=== PATIENT | male | born 1990 | race Caucasian/White ===

== ENCOUNTER 2023-04-11 15:04 | Emergency (ER) | payer BC, SELFPAY ==
[2023-04-11 15:06] VITALS: BP 169/111; PULSE 89; RESP 16; TEMP 36.7; O2SAT 99; BMI 24.1
--- NOTE | 2023-04-11 15:16 | US_ITS ---
The [address] [address] Patient Name: SHAHLA DOBBS MRN: [id number] date: 1990 Sex: M Assigned Patient Location: ER Current Patient Location: ER Accession/Order Number: [id number] Exam Date: 04/11/2023 15:27 Report Date: 04/11/2023 16:41 At the request of: KEENAN NGUYEN Procedure: US right upper quadrant EXAM: US right upper quadrant HISTORY: . right upper quad pain, vomiting . COMPARISON: None. TECHNIQUE: Grayscale and color imaging was performed FINDINGS: The pancreas appears normal. The liver is normal in size. No masses are noted. Color-flow is noted in the portal and hepatic veins. Right kidney measures 11.3 x 5.5 x 5.4 cm. No solid renal cortical masses or hydronephrosis is noted. Common bile duct measures 3 mm. Echogenic foci noted within the gallbladder with shadowing consistent with gallstones. The largest stone measured approximately 1.1 cm. No gallbladder wall thickening is noted. Patient did have some tenderness upon scanning over the gallbladder. No fluid is noted in the right upper quadrant. US/US right upper quadrant IMPRESSION: 1. Cholelithiasis. No gallbladder wall thickening. Patient did have some tenderness upon scanning over the gallbladder. 2. The remainder the right upper quadrant was unremarkable. Electronically authenticated by: FLY POWELL Date: 04/11/2023 16:41
--- NOTE | 2023-04-11 15:19 | ED_ITS ---
HPI - General Adult General Chief complaint: Abdominal Pain Stated complaint: abdominal pain Time Seen by Provider: 04/11/23 15:04 Source: patient Mode of arrival: walk-in Limitations: no limitations History of Present Illness HPI narrative: Patient is a 32-year-old male who presents to the emergency department for pain for the last 3 to 4 days. He reports associated nausea and vomiting, he has not had anything to eat or drink today. He states he has chronic diarrhea which is thought to be a side effect of one of his medications. He has had no previous abdominal surgeries, no fevers. He denies urinary symptoms. He reports pain in the right upper quadrant, radiating to the right lateral abdomen. No significant back pain. No medications taken prior to arrival. Related Data Home Medications Medication Instructions Recorded Confirmed baclofen 10 mg tablet 10 mg PO Q12H PRN muscle spasm 04/11/23 04/11/23 bictegravir 50 mg-emtricitabine 1 tab PO DAILY 04/11/23 04/11/23 200 mg-tenofovir alafenam 25 mg tablet (Biktarvy) pantoprazole 40 mg tablet,delayed 40 mg PO DAILY 04/11/23 04/11/23 release Previous Rx's Medication Instructions Recorded dicyclomine 20 mg tablet 20 mg PO QID PRN abdominal pain 04/11/23 #12 tabs ketorolac 10 mg tablet 10 mg PO TID PRN pain #10 tabs 04/11/23 ondansetron 4 mg disintegrating 4 mg PO Q6H PRN nausea and 04/11/23 tablet vomiting #12 tabs tramadol 50 mg tablet 50 mg PO Q4H PRN pain 3 days #15 04/11/23 tabs Allergies Allergy/AdvReac Type Severity Reaction Status Date / Time No Known Drug Allergies Allergy Verified 04/11/23 15:06 Review of Systems ROS Constitutional Denies: fever or chills Ears, nose, mouth, and throat Denies: throat pain or nasal congestion Cardiovascular Denies: chest pain Respiratory Denies: shortness of breath or cough Gastrointestinal Reports: abdominal pain, nausea, vomiting and diarrhea Genitourinary Denies: painful urination or urinary frequency Musculoskeletal Denies: back pain or neck pain Integumentary/Breast Denies: rash Neurological Denies: headache PFSH PFSH Social History Smoking status: Current some day smoker Exam Narrative Exam Narrative: Gen.: Awake, alert, in no distress Head: Normocephalic, atraumatic ENT: Moist mucous membranes Respiratory: No respiratory distress Gastrointestinal: Abdomen is soft, nondistended and tender to palpation in the right upper quadrant, no guarding or rebound Extremities: Moves extremities equally Psych: Normal mood and affect Neuro: No focal neuro deficit Skin: Warm, dry, intact Constitutional Vital Signs, click to edit/add: Last Vital Signs Temp 98.1 F 04/11/23 15:06 Pulse 80 04/11/23 17:30 Resp 16 04/11/23 17:30 BP 133/88 04/11/23 17:30 Pulse Ox 98 04/11/23 17:30 O2 Del Method Room Air 04/11/23 15:06 Course Vital Signs Vital signs: Vital Signs Temperature 98.1 F 04/11/23 15:06 Pulse Rate 89 04/11/23 15:06 Respiratory Rate 16 04/11/23 15:06 Blood Pressure 169/111 H 04/11/23 15:06 Pulse Oximetry 99 04/11/23 15:06 Oxygen Delivery Method Room Air 04/11/23 15:06 Temperature 98.1 F 04/11/23 15:06 Pulse Rate 80 04/11/23 17:30 Respiratory Rate 16 04/11/23 17:30 Blood Pressure 133/88 04/11/23 17:30 Pulse Oximetry 98 04/11/23 17:30 Oxygen Delivery Method Room Air 04/11/23 15:06 Medical Decision Making MDM Narrative Medical decision making narrative: Lab studies within normal limits, normal LFTs and lipase. Ultrasound of the right upper quadrant shows gallstones with no evidence of acute cholecystitis or thickened gallbladder. Patient will be referred to general surgery. He is encouraged to follow a low fat/biliary diet. Levsin, Zofran, Toradol given for home. General surgery referral given for follow-up. Return to the emergency department if symptoms change or worsen. Medical Records Medical records reviewed: Yes I reviewed the patient's medical records Lab Data Lab results reviewed: Yes I reviewed the patient's lab results Labs: Lab Results 04/11/23 04/11/23 Range/Units 15:15 16:13 WBC 7.3 (4.0-11.0) 10^3/uL RBC 4.73 (4.70-6.10) 10^6/uL Hgb 14.4 (14.0-18.0) g/dL Hct 42.7 (42.0-54.0) % MCV 90.3 (80.0-94.0) fL MCH 30.4 (25.9-34.0) pg MCHC 33.7 (29.9-35.2) g/dL RDW 12.2 (11.0-15.0) % Plt Count 270 (150-450) 10^3/uL MPV 8.7 L (9.5-13.5) fL Neut % (Auto) 69.7 (43.0-75.0) % Lymph % (Auto) 21.4 (20.5-60.0) % [place] % (Auto) 6.4 (1.7-12.0) % Eos % (Auto) 1.8 (0.9-7.0) % Baso % (Auto) 0.4 (0.2-2.0) % Neut # (Auto) 5.1 (1.4-6.5) 10^3/uL Lymph # (Auto) 1.6 (1.2-3.8) 10^3/uL [place] # (Auto) 0.5 (0.3-0.8) 10^3/uL Eos # (Auto) 0.1 (0.0-0.7) 10^3/uL Baso # (Auto) 0.0 (0.0-0.1) 10^3/uL Abs Immat Gran (auto) 0.02 (0.00-0.03) 10^3/uL Imm/Tot Granulo (auto) 0.3 (0.0-0.5) % Sodium 137 (136-145) mmol/L Potassium 3.4 L (3.5-5.1) mmol/L Chloride 99 (98-107) mmol/L Carbon Dioxide 26.0 (21.0-32.0) mmol/L Anion Gap 15.4 BUN 6.0 L (7.0-18.0) mg/dL Creatinine 0.93 (0.70-1.30) mg/dL Est GFR ( Amer) >60 (>=60) Est GFR (Non-Af Amer) >60 (>=60) BUN/Creatinine Ratio 6.5 Glucose 110 H (74-106) mg/dL Lactate 2.2 H* (0.4-2.0) mmol/L Calcium 9.1 (8.5-10.1) mg/dL Total Bilirubin 0.6 (0.2-1.0) mg/dL AST 17 (15-37) U/L ALT 35 (16-63) U/L Alkaline Phosphatase 76 (46-116) U/L Total Protein 8.0 (6.4-8.2) g/dL Albumin 4.4 (3.4-5.0) g/dL Globulin 3.6 g/dL Albumin/Globulin Ratio 1.2 Lipase 24.0 (16.0-77.0) U/L Urine Color Lt. yellow (YELLOW) Urine Clarity Clear (CLEAR) Urine pH 7.0 (5.0-9.0) Ur Specific [place] 1.015 (1.005-1.025) Urine Protein Negative (NEG/TRACE) mg/dL Urine Glucose (UA) Negative (NEGATIVE) mg/dL Urine Ketones Trace A (NEGATIVE) mg/dL Urine Occult Blood Negative (NEGATIVE) Urine Nitrite Negative (NEGATIVE) Urine Bilirubin Negative (NEGATIVE) Urine Urobilinogen 0.2 (0.2-1.0) EU/dL Ur Leukocyte Esterase Negative (NEGATIVE) Imaging Data US - abdomen: Attestation: I have reviewed the pertinent imaging results. Radiologist's impression: Procedure: US right upper quadrant EXAM: US right upper quadrant HISTORY: . right upper quad pain, vomiting . COMPARISON: None. TECHNIQUE: Grayscale and color imaging was performed FINDINGS: The pancreas appears normal. The liver is normal in size. No masses are noted. Color-flow is noted in the portal and hepatic veins. Right kidney measures 11.3 x 5.5 x 5.4 cm. No solid renal cortical masses or hydronephrosis is noted. Common bile duct measures 3 mm. Echogenic foci noted within the gallbladder with shadowing consistent with gallstones. The largest stone measured approximately 1.1 cm. No gallbladder wall thickening is noted. Patient did have some tenderness upon scanning over the gallbladder. No fluid is noted in the right upper quadrant. IMPRESSION: 1. Cholelithiasis. No gallbladder wall thickening. Patient did have some tenderness upon scanning over the gallbladder. 2. The remainder the right upper quadrant was unremarkable. Electronically authenticated by: FLY SHERRY Date: 04/11/2023 16:41 Discharge Plan Discharge Chief Complaint: Abdominal Pain Clinical Impression: Abdominal pain, Cholelithiasis Patient Disposition: Home, Self-Care Time of Disposition Decision: 17:12 Condition: Good Prescriptions / Home Meds: New tramadol 50 mg tablet 50 mg PO Q4H PRN (Reason: pain) 3 Days Qty: 15 0RF Rx Instructions: Dx: R10.9 ketorolac 10 mg tablet 10 mg PO TID PRN (Reason: pain) Qty: 10 0RF dicyclomine 20 mg tablet 20 mg PO QID PRN (Reason: abdominal pain) Qty: 12 0RF ondansetron 4 mg tablet,disintegrating 4 mg PO Q6H PRN (Reason: nausea and vomiting) Qty: 12 0RF No Action pantoprazole 40 mg tablet,delayed release (DR/EC) 40 mg PO DAILY Biktarvy 50-200-25 mg tablet 1 tab PO DAILY baclofen 10 mg tablet 10 mg PO Q12H PRN (Reason: muscle spasm) Instructions: Gallstones (ED), Acute Abdominal Pain (ED) Stand Alone Forms: Portal Instructions Referrals: Payam Salguero MD [Physician] - 1 week Payam Arzola MD [Physician] - 1 week Physician,Non-Staff, MD [Primary Care Provider] - 1 week Discharge Date/Time: 04/11/23 17:32
[2023-04-11 15:33] LABS: Basophils Percent Auto 0.4 % (0.2-2.0); Eosinophils Absolute Auto 0.1 10^3/uL (0.0-0.7); Eosinophils Percent Auto 1.8 % (0.9-7.0); Hematocrit 42.7 % (42.0-54.0); Hemoglobin 14.4 g/dL (14.0-18.0); Immature Granulocytes Abs Auto 0.02 10^3/uL (0.00-0.03); Immature Granulocytes Pct Auto 0.3 % (0.0-0.5); Lymphocytes Absolute Auto 1.6 10^3/uL (1.2-3.8); Lymphocytes Percent Auto 21.4 % (20.5-60.0); Mean Corpuscular HGB Conc 33.7 g/dL (29.9-35.2); Mean Corpuscular Hemoglobin 30.4 pg (25.9-34.0); Mean Corpuscular Volume 90.3 fL (80.0-94.0); Mean Platelet Volume 8.7 fL (9.5-13.5); Monocytes Absolute Auto 0.5 10^3/uL (0.3-0.8); Monocytes Percent Auto 6.4 % (1.7-12.0); Neutrophils Absolute Auto 5.1 10^3/uL (1.4-6.5); Neutrophils Percent Auto 69.7 % (43.0-75.0); Platelet Count 270 10^3/uL (150-450); Red Blood Count 4.73 10^6/uL (4.70-6.10); Red Cell Distribution Width 12.2 % (11.0-15.0); White Blood Count 7.3 10^3/uL (4.0-11.0)
[2023-04-11 16:00] LABS: Alanine Aminotransferase 35 U/L (16-63); Albumin Globulin Ratio 1.2; Albumin Level 4.4 g/dL (3.4-5.0); Alkaline Phosphatase 76 U/L (46-116); Anion Gap 15.4; Aspartate Amino Transferase 17 U/L (15-37); BUN Creatinine Ratio 6.5; Bilirubin Total 0.6 mg/dL (0.2-1.0); Calcium 9.1 mg/dL (8.5-10.1); Chloride 99 mmol/L (98-107); Estimated GFR (African America >60 (>=60); Estimated GFR (Non-African Ame >60 (>=60); Globulin 3.6 g/dL; Glucose 110 mg/dL (74-106); Potassium 3.4 mmol/L (3.5-5.1); Sodium 137 mmol/L (136-145)
[2023-04-11 16:01] LABS: Lactate/Lactic Acid 2.2 mmol/L (0.4-2.0)
[2023-04-11] MEDS: 0.9 % SODIUM CHLORIDE 1,000 ML 999 ML IV (16:07)
[2023-04-11] MEDS: ONDANSETRON PF 4 MG/2 ML VIAL IV (16:09)
[2023-04-11] MEDS: KETOROLAC TROMETHAMINE 30 MG/ML VIAL IVP (16:09)
[2023-04-11] MEDS: HYOSCYAMINE SULFATE 0.125 MG TAB.SUBL SL (16:09)
[2023-04-11 16:22] LABS: Bilirubin Urine NEGATIVE (NEGATIVE); Blood Urine NEGATIVE (NEGATIVE); Clarity Urine CLEAR (CLEAR); Color Urine LT. YELLOW (YELLOW); Glucose Urine UA NEGATIVE (NEGATIVE); Ketones Urine TRACE mg/dL (NEGATIVE); Leukocyte Esterase Urine NEGATIVE (NEGATIVE); Nitrite Urine NEGATIVE (NEGATIVE); Protein Urine NEGATIVE (NEG/TRACE); Specific Gravity Urine 1.015 (1.005-1.025); Urobilinogen Urine 0.2 EU/dL (0.2-1.0)
[2023-04-11 16:23] LABS: Urine Microscopic Indicated NO
[2023-04-11 17:30] VITALS: BP 133/88; PULSE 80; RESP 16; O2SAT 98
== END 2023-04-11 17:32 | disposition home or self-care (01) ==
PROVIDERS: Physician Assistant; Emergency Provider Emergency Medicine
DX: K80.20 Calculus of gallbladder without cholecystitis without obstruction (principal); R10.11 Right upper quadrant pain; K52.9 Noninfective gastroenteritis and colitis, unspecified; F17.200 Nicotine dependence, unspecified, uncomplicated
CPT/HCPCS: 36415; 76705; 80053; 81003; 83605; 83690; 85025; 96361; 96374; 96375; 99285

== ENCOUNTER 2023-04-26 14:17 | Emergency (ER) | payer BC, SELFPAY ==
[2023-04-26 14:31] VITALS: BP 154/93; PULSE 80; RESP 20; TEMP 36.7; O2SAT 100; BMI 24.4
[2023-04-26 15:14] LABS: Basophils Percent Auto 0.5 % (0.2-2.0); Eosinophils Absolute Auto 0.2 10^3/uL (0.0-0.7); Eosinophils Percent Auto 2.6 % (0.9-7.0); Hematocrit 38.4 % (42.0-54.0); Hemoglobin 12.9 g/dL (14.0-18.0); Lymphocytes Absolute Auto 1.4 10^3/uL (1.2-3.8); Mean Corpuscular HGB Conc 33.6 g/dL (29.9-35.2); Mean Corpuscular Hemoglobin 30.4 pg (25.9-34.0); Mean Corpuscular Volume 90.4 fL (80.0-94.0); Mean Platelet Volume 8.9 fL (9.5-13.5); Monocytes Absolute Auto 0.4 10^3/uL (0.3-0.8); Monocytes Percent Auto 5.3 % (1.7-12.0); Neutrophils Absolute Auto 5.5 10^3/uL (1.4-6.5); Neutrophils Percent Auto 72.6 % (43.0-75.0); Platelet Count 289 10^3/uL (150-450); Red Blood Count 4.25 10^6/uL (4.70-6.10); Red Cell Distribution Width 12.1 % (11.0-15.0); White Blood Count 7.6 10^3/uL (4.0-11.0)
[2023-04-26] MEDS: 0.9 % SODIUM CHLORIDE 1,000 ML 999 ML IV (15:17)
[2023-04-26] MEDS: ONDANSETRON PF 4 MG/2 ML VIAL IV (15:17)
[2023-04-26] MEDS: HYOSCYAMINE SULFATE 0.125 MG TAB.SUBL SL (15:17)
[2023-04-26 15:27] LABS: Alanine Aminotransferase 26 U/L (16-63); Albumin Globulin Ratio 1.2; Albumin Level 3.9 g/dL (3.4-5.0); Alkaline Phosphatase 67 U/L (46-116); Anion Gap 10.8; Aspartate Amino Transferase 12 U/L (15-37); BUN Creatinine Ratio 12.8; Bilirubin Total 0.3 mg/dL (0.2-1.0); Carbon Dioxide 27.7 mmol/L (21.0-32.0); Chloride 102 mmol/L (98-107); Estimated GFR (African America >60 (>=60); Estimated GFR (Non-African Ame >60 (>=60); Globulin 3.3 g/dL; Glucose 100 mg/dL (74-106); Potassium 3.5 mmol/L (3.5-5.1); Sodium 137 mmol/L (136-145); Total Protein 7.2 g/dL (6.4-8.2)
--- NOTE | 2023-04-26 15:59 | US_ITS ---
The [address] [address] Patient Name: SHAHLA DOBBS MRN: [id number] date: 1990 Sex: M Assigned Patient Location: ER Current Patient Location: ER Accession/Order Number: [id number] Exam Date: 04/26/2023 16:00 Report Date: 04/26/2023 17:26 At the request of: SAMSON CORONEL Procedure: US right upper quadrant EXAMINATION: US right upper quadrant TECHNIQUE: Limited ultrasound of the abdomen was performed. Grayscale and color flow Doppler imaging. HISTORY: biliary colic, gallstones. COMPARISON: 04/11/2023 FINDINGS: Liver: The liver demonstrates normal homogeneous echotexture and normal size. Gallbladder/biliary: Small shadowing echogenic stone within the neck of the gallbladder. No gallbladder wall thickening or pericholecystic fluid. The common extrahepatic duct diameter measures 3.4mm. There is no intra or extrahepatic biliary dilatation. There is no visualized obstructing biliary stone. Pancreas: The visualized portion of the pancreas demonstrates normal homogeneous echotexture. Right Kidney: Unremarkable with no mass lesion or hydronephrosis. Other findings: None US/US right upper quadrant IMPRESSION: No acute right upper quadrant pathology. Electronically authenticated by: MIGUELITO SÁNCHEZ Date: 04/26/2023 17:26
--- NOTE | 2023-04-26 16:44 | ED_ITS ---
HPI - Abdominal Pain General Chief Complaint: Abdominal Pain Stated Complaint: ABDOMINAL PAIN Time Seen by Provider: 04/26/23 14:39 Source: patient Mode of arrival: walk-in Limitations: no limitations History of Present Illness HPI narrative: Patient was previously diagnosed with gallstones and is scheduled for surgery with Dr Salguero on 05/03/22. He returns with RUQ abdominal pain and nausea. No relief with NSAIDs and Tylenol. He was also prescribed Ultram and later Tylenol with codeine for the pain without any improvement. No fever or chills. No diarrhea. Pain is non-radiating. No skin rash. Related Data Home Medications Medication Instructions Recorded Confirmed baclofen 10 mg tablet 10 mg PO Q12H PRN muscle spasm 04/11/23 04/11/23 bictegravir 50 mg-emtricitabine 1 tab PO DAILY 04/11/23 04/11/23 200 mg-tenofovir alafenam 25 mg tablet (Biktarvy) pantoprazole 40 mg tablet,delayed 40 mg PO DAILY 04/11/23 04/11/23 release Previous Rx's Medication Instructions Recorded dicyclomine 20 mg tablet 20 mg PO QID PRN abdominal pain 04/11/23 #12 tabs ketorolac 10 mg tablet 10 mg PO TID PRN pain #10 tabs 04/11/23 ondansetron 4 mg disintegrating 4 mg PO Q6H PRN nausea and 04/11/23 tablet vomiting #12 tabs tramadol 50 mg tablet 50 mg PO Q4H PRN pain 3 days #15 04/11/23 tabs Allergies Allergy/AdvReac Type Severity Reaction Status Date / Time No Known Drug Allergies Allergy Verified 04/11/23 15:06 [facility] Social History Smoking status: Light tobacco smoker Exam Narrative Exam Narrative: Nurses notes and vital signs reviewed and patient is not hypoxic. afebrile General: States pain is severe but is in no apparent distress. Skin: Warm, dry, no pallor noted. Eye: Pupils are equal, round and EOMI. No scleral icterus. Ears, Nose, Mouth, and Throat: Oral mucosa is moist Cardiovascular: Regular Rate and Rhythm without murmur, gallop or rub. Respiratory: No accessory muscle use or respiratory distress. Lungs are clear to auscultation, no wheezing, rales or rhonchi Back: No CVA tenderness Musculoskeletal: normal ROM GI: Abdomen is soft, non-distended. Normal bowel sounds. RUQ tenderness to palpation. No rebound, guarding, or rigidity noted. Neurological: A&O x4. No cranial nerve dysfunction observed. No truncal ataxia. Moves all extremities. Sensation intact. Psychiatric: Cooperative and interactive. Normal mood and affect. Constitutional Vital Signs, click to edit/add: Last Vital Signs Temp 98.1 F 04/26/23 14:31 Pulse 80 04/26/23 14:31 Resp 20 04/26/23 14:31 BP 154/93 H 04/26/23 14:31 Pulse Ox 100 04/26/23 14:31 O2 Del Method Room Air 04/26/23 14:31 Course Vital Signs Vital signs: Vital Signs Temperature 98.1 F 04/26/23 14:31 Pulse Rate 80 04/26/23 14:31 Respiratory Rate 20 04/26/23 14:31 Blood Pressure 154/93 H 04/26/23 14:31 Pulse Oximetry 100 04/26/23 14:31 Oxygen Delivery Method Room Air 04/26/23 14:31 Temperature 98.1 F 04/26/23 14:31 Pulse Rate 80 04/26/23 14:31 Respiratory Rate 20 04/26/23 14:31 Blood Pressure 154/93 H 04/26/23 14:31 Pulse Oximetry 100 04/26/23 14:31 Oxygen Delivery Method Room Air 04/26/23 14:31 MDM - Abdominal Pain MDM Narrative Medical decision making narrative: Peripheral IV established and blood was drawn and sent for testing. The patient was ordered to receive normal saline IV fluid, IV Zofran and Levsin for pain CBC is normal. CMP negative for any worrisome pathology and lipase is negative as well. Right upper quadrant ultrasound obtained. It was negative for any gallbladder pathology other than gallstones. No sign of acute cholecystitis or CBD obstruc tion. Patient continues to have severe pain. He was ordered to receive IV Toradol and IV Dilaudid. He was ordered to undergo CT abdomen and pelvis with IV contrast. I had a long talk with the patient about delays and how long it is taking to get results and long he has been waiting due to the high acuity and high number of patients in the ED today. He is obviously frustrated. He felt better after getting IV Toradol and IV Dilaudid - rates pain 07/08. CT abd/pelvis report pending Patient signed out to machinist 2nd shift physician, Dr Mccall, at shift change. Lab Data Attestation: I reviewed the patient's lab results. Labs: Lab Results 04/26/23 04/26/23 Range/Units 15:03 16:30 WBC 7.6 (4.0-11.0) 10^3/uL RBC 4.25 L (4.70-6.10) 10^6/uL Hgb 12.9 L (14.0-18.0) g/dL Hct 38.4 L (42.0-54.0) % MCV 90.4 (80.0-94.0) fL MCH 30.4 (25.9-34.0) pg MCHC 33.6 (29.9-35.2) g/dL RDW 12.1 (11.0-15.0) % Plt Count 289 (150-450) 10^3/uL MPV 8.9 L (9.5-13.5) fL Neut % (Auto) 72.6 (43.0-75.0) % Lymph % (Auto) 19.0 L (20.5-60.0) % [place] % (Auto) 5.3 (1.7-12.0) % Eos % (Auto) 2.6 (0.9-7.0) % Baso % (Auto) 0.5 (0.2-2.0) % Neut # (Auto) 5.5 (1.4-6.5) 10^3/uL Lymph # (Auto) 1.4 (1.2-3.8) 10^3/uL [place] # (Auto) 0.4 (0.3-0.8) 10^3/uL Eos # (Auto) 0.2 (0.0-0.7) 10^3/uL Baso # (Auto) 0.0 (0.0-0.1) 10^3/uL Abs Immat Gran (auto) 0.00 (0.00-0.03) 10^3/uL Imm/Tot Granulo (auto) 0.0 (0.0-0.5) % Sodium 137 (136-145) mmol/L Potassium 3.5 (3.5-5.1) mmol/L Chloride 102 (98-107) mmol/L Carbon Dioxide 27.7 (21.0-32.0) mmol/L Anion Gap 10.8 BUN 11.0 (7.0-18.0) mg/dL Creatinine 0.86 (0.70-1.30) mg/dL Est GFR ( Amer) >60 (>=60) Est GFR (Non-Af Amer) >60 (>=60) BUN/Creatinine Ratio 12.8 Glucose 100 (74-106) mg/dL Calcium 9.0 (8.5-10.1) mg/dL Total Bilirubin 0.3 (0.2-1.0) mg/dL AST 12 L (15-37) U/L ALT 26 (16-63) U/L Alkaline Phosphatase 67 (46-116) U/L Total Protein 7.2 (6.4-8.2) g/dL Albumin 3.9 (3.4-5.0) g/dL Globulin 3.3 g/dL Albumin/Globulin Ratio 1.2 Lipase 30.0 (16.0-77.0) U/L Urine Color Lt. yellow (YELLOW) Urine Clarity Clear (CLEAR) Urine pH 6.5 (5.0-9.0) Ur Specific [place] 1.010 (1.005-1.025) Urine Protein Negative (NEG/TRACE) mg/dL Urine Glucose (UA) Negative (NEGATIVE) mg/dL Urine Ketones Negative (NEGATIVE) mg/dL Urine Occult Blood Negative (NEGATIVE) Urine Nitrite Negative (NEGATIVE) Urine Bilirubin Negative (NEGATIVE) Urine Urobilinogen 0.2 (0.2-1.0) EU/dL Ur Leukocyte Esterase Negative (NEGATIVE) Imaging Data RUQ US: Radiologist's impression: Patient Name: SHAHLA DOBBS MRN: [id number] date: 1990 Sex: M Assigned Patient Location: ER Current Patient Location: Accession/Order Number: [id number] Exam Date: 04/26/2023 16:00 Report Date: 04/26/2023 17:26 At the request of: SAMSON CORONEL Procedure: US right upper quadrant EXAMINATION: US right upper quadrant TECHNIQUE: Limited ultrasound of the abdomen was performed. Grayscale and color flow Doppler imaging. HISTORY: biliary colic, gallstones. COMPARISON: 04/11/2023 FINDINGS: Liver: The liver demonstrates normal homogeneous echotexture and normal size. Gallbladder/biliary: Small shadowing echogenic stone within the neck of the gallbladder. No gallbladder wall thickening or pericholecystic fluid. The common extrahepatic duct diameter measures 3.4mm. There is no intra or extrahepatic biliary dilatation. There is no visualized obstructing biliary stone. Pancreas: The visualized portion of the pancreas demonstrates normal homogeneous echotexture. Right Kidney: Unremarkable with no mass lesion or hydronephrosis. Other findings: None IMPRESSION: No acute right upper quadrant pathology. Electronically authenticated by: MIGUELITO SÁNCHEZ Date: 04/26/2023 17:26 Discharge Plan Discharge Chief Complaint: Abdominal Pain Clinical Impression: Abdominal pain Patient Disposition: Still a Patient Prescriptions / Home Meds: No Action pantoprazole 40 mg tablet,delayed release (DR/EC) 40 mg PO DAILY Biktarvy 50-200-25 mg tablet 1 tab PO DAILY baclofen 10 mg tablet 10 mg PO Q12H PRN (Reason: muscle spasm) tramadol 50 mg tablet 50 mg PO Q4H PRN (Reason: pain) 3 Days Qty: 15 0RF Rx Instructions: Dx: R10.9 ketorolac 10 mg tablet 10 mg PO TID PRN (Reason: pain) Qty: 10 0RF dicyclomine 20 mg tablet 20 mg PO QID PRN (Reason: abdominal pain) Qty: 12 0RF ondansetron 4 mg tablet,disintegrating 4 mg PO Q6H PRN (Reason: nausea and vomiting) Qty: 12 0RF Referrals: Physician,Non-Staff, MD [Primary Care Provider] - 1 week
[2023-04-26 17:03] LABS: Bilirubin Urine NEGATIVE (NEGATIVE); Blood Urine NEGATIVE (NEGATIVE); Clarity Urine CLEAR (CLEAR); Color Urine LT. YELLOW (YELLOW); Glucose Urine UA NEGATIVE (NEGATIVE); Ketones Urine NEGATIVE (NEGATIVE); Leukocyte Esterase Urine NEGATIVE (NEGATIVE); Nitrite Urine NEGATIVE (NEGATIVE); Protein Urine NEGATIVE (NEG/TRACE); Urobilinogen Urine 0.2 EU/dL (0.2-1.0); pH Urine 6.5 (5.0-9.0)
[2023-04-26 17:07] LABS: Urine Microscopic Indicated NO
--- NOTE | 2023-04-26 17:44 | CT_ITS ---
[address] [address] Patient Name: SHAHLA DOBBS MRN: [id number] date: 1990 Sex: M Assigned Patient Location: ER Current Patient Location: .[facility] Accession/Order Number: [id number] Exam Date: 04/26/2023 18:00 Report Date: 04/26/2023 19:16 At the request of: SAMSON CORONEL Procedure: CT abdomen pelvis w con EXAM: CT abdomen pelvis w con TECHNIQUE: Axial CT images were obtained of the abdomen and pelvis with intravenous contrast. Sagittal and coronal reformatted images were also obtained. Dose reduction techniques were achieved by using automated exposure control and/or adjustment of mA and/or kV according to patient size and/or use of iterative reconstruction technique. HISTORY: right sided abdominal pain COMPARISON: Ultrasound 04/26/[address] scan 09/08/2015 FINDINGS: Lower chest: The lower lungs are clear. Liver: The liver is homogeneous with normal contours and normal size. Gallbladder: The gallbladder is unremarkable. There is no intra or extrahepatic biliary dilatation. Pancreas: The pancreas is homogeneous without evidence for mass lesion or inflammation. Spleen: The spleen is unremarkable without evidence for mass lesion. Adrenal glands: The adrenal glands are unremarkable Kidneys and bladder: Small cyst of the anterior cortex left kidney. Unremarkable right kidney. The ureters demonstrate normal caliber. The urinary bladder is unremarkable. GI Tract: Stomach is unremarkable. Visualized small bowel is unremarkable without evidence for obstruction or active inflammation. The appendix is unremarkable.The visualized portion of the large bowel is unremarkable. Reproductive: Unremarkable Lymph nodes: No retroperitoneal or abdominal lymphadenopathy. Vascular: The aorta is not dilated. Peritoneum: No free intraperitoneal air or fluid. No acute inflammation. Abdominal wall: Unremarkable without acute abnormality. CT/CT abdomen pelvis w con IMPRESSION: No acute abdominal pathology. No acute inflammatory process. No obstructing urinary tract stone. No evidence for bowel obstruction. Electronically authenticated by: MIGUELITO SÁNCHEZ Date: 04/26/2023 19:16
[2023-04-26] MEDS: HYDROMORPHONE HCL 1 MG/ML CARTRIDGE IVP (17:50)
[2023-04-26] MEDS: KETOROLAC TROMETHAMINE 30 MG/ML VIAL IVP (17:52)
[2023-04-26] MEDS: HYDROCODONE/ACET 5-325 MG TABLET 2 TAB PO (19:54)
[2023-04-26] MEDS: ONDANSETRON 4 MG RAPDIS TABLET SL (19:55)
[2023-04-26 19:59] VITALS: BP 151/100; PULSE 64; RESP 14; O2SAT 98
== END 2023-04-26 20:01 | disposition home or self-care (01) ==
PROVIDERS: Emergency Medicine; Emergency Provider Emergency Medicine
DX: K80.20 Calculus of gallbladder without cholecystitis without obstruction (principal); R10.11 Right upper quadrant pain; R11.0 Nausea; F17.200 Nicotine dependence, unspecified, uncomplicated
CPT/HCPCS: 36415; 74177; 76705; 80053; 81003; 83690; 85025; 96374; 96375; 99285; J1170; Q9967

== ENCOUNTER 2023-05-04 09:07 | Outpatient (OUT) | payer BC, SELFPAY ==
--- OUTSIDE RECORDS SUMMARY | 2023-05-04 09:18 | XMS_ITS | CCD ---
Author Name Unknown Address [address] [facility] [address] [place] [id number] Organization [facility] Care Team Providers Care Rail Car Driver Name Role Phone DR SAMSON CORONEL Admitting Unavailable DR SAMSON CORONEL Attending Unavailable [facility] Primary Care Unava DR SAMSON Blevins Consulting Unavailable FARZANA KELLY Attending Unavailable NKECHI RO Attending Unavailable FARZANA KELLY Attending Unavailable Desire Jenkins DO Primary Care Provider Medications Current Medications Medication Drug Class(es) Dates Sig (Normalized) Sig (Original) acetaminophen 325 mg / HYDROcodone bitartrate 5 mg oral tablet (1 source) Opioid Agonist Start: 05-03-2023 End: 05-08-2023 HYDROcodone-acetam inophen (NORCO) 5-325 mg per tablet Indications: Calculus of gallbladder with chronic cholecystitis without obstruction Take 1 tablet by mouth every 6 (six) hours as needed for pain for up to 5 days. Max Daily Amount: 4 tablets 6 tablet 0 05/03/2023 05/08/2023 Active bictegravir 50 mg / emtricitabine 200 mg / tenofovir alafenamide 25 mg oral tablet (1 source) Human Immunodeficiency Virus Nucleoside Analog Reverse Transcriptase Inhibitor take 1 tablet by mouth once in the morning bictegrav-emtricit -tenofov ala (BIKTARVY) 50-200-25 mg per tablet Take 1 tablet by mouth in the morning. 0 Active ondansetron 4 mg oral tablet (2 sources) Serotonin-3 Receptor Antagonist Start: 05-03-2023 take 1 tablet by mouth every eight hours as needed for nausea and vomiting ondansetron (ZOFRAN) 4 mg tablet Take 1 tablet (4 mg total) by mouth every 8 (eight) hours as needed for nausea or vomiting. 12 tablet 0 05/03/2023 Active Start: 04-20-2023 End: 05-03-2023 take 2 tablets by mouth every eight hours as needed ondansetron (ZOFRAN) 4 mg tablet Take 2 tablets (8 mg total) by mouth every 8 (eight) hours as needed. 0 04/20/2023 05/03/2023 Discontinued (Reorder) pantoprazole 40 mg delayed release oral tablet (1 source) Proton Pump Inhibitor take 1 tablet by mouth in the morning pantoprazole (PROTONIX) 40 mg EC tablet Take 1 tablet (40 mg total) by mouth in the morning. 0 Active Completed/Discontinued Medications Medication Drug Class(es) Dates Sig (Normalized) Sig (Original) baclofen 10 mg oral tablet (1 source) gamma-Aminobutyri c Acid-ergic Agonist End: 05-03-2023 take 1 tablet by mouth three times daily as needed baclofen (LIORESAL) 10 mg tablet Take 1 tablet (10 mg total) by mouth 3 (three) times a day. prn 0 05/03/2023 Discontinued (Therapy completed) gabapentin 300 mg oral capsule (1 source) Anti-epileptic Agent End: 05-03-2023 take 1 capsule by mouth three times daily gabapentin (NEURONTIN) 300 mg capsule Take 300 mg by mouth 3 (three) times a day. 0 05/03/2023 Discontinued (Therapy completed) Problems Active Problems Problem Classification Problem Date Documented Date Episodic/Chronic Abdominal pain (2 sources) Generalized abdominal pain; Translations: [Generalized abdominal pain] Onset: 11-07-2022 Episodic Biliary tract disease (1 source) Cholelithiasis AND cholecystitis without obstruction; Translations: [Calculus of gallbladder with chronic cholecystitis without obstruction] 05-03-2023 Episodic Esophageal disorders (2 sources) Gastro-esophageal reflux disease without esophagitis; Translations: [Gastro-esophageal reflux disease without esophagitis] Onset: 05-05-2022 Chronic HIV infection (3 sources) Human immunodeficiency virus [HIV] disease; Translations: [H/O: viral illness] Onset: 05-05-2022 Chronic Other aftercare (2 sources) Other termite treater (current) drug therapy; Translations: [Other termite treater (current) drug therapy] Onset: 11-25-2022 Episodic Other nervous system disorders (2 sources) Polyneuropathy, unspecified; Translations: [Polyneuropathy, unspecified] Onset: 05-05-2022 Chronic Residual codes; unclassified (1 source) Procedure and treatment not carried out due to patient leaving prior to being seen by health care provider; Translations: [PROC AND TX NOT CARRIED OUT PT LEAVE] Onset: 04-27-2022 Episodic Unclassified (3 sources) COUGH, UNSPECIFIED; Translations: [COUGH, UNSPECIFIED] Onset: 04-27-2022 Unclassified (1 source) CONTACT W/AND (SUSP) EXPOS COVID-19; Translations: [CONTACT W/AND (SUSP) EXPOS COVID-19] Onset: 04-27-2022 Unclassified (1 source) Low back pain, unspecified; Translations: [Low back pain, unspecified] Onset: 05-05-2022 Past or Other Problems Problem Classification Problem Date Documented Da te Episodic/Chronic Immunizations and screening for infectious disease (2 sources) Encounter for screening for other viral diseases; Translations: [Encounter for screening for other viral diseases] Onset: 05-05-2022 Episodic Other gastrointestinal disorders (2 sources) Diarrhea, unspecified; Translations: [Diarrhea, unspecified] Onset: 05-05-2022 Episodic Unclassified (1 source) COUGH, UNSPECIFIED; Translations: [COUGH, UNSPECIFIED] Onset: 04-25-2022 Unclassified (1 source) Low back pain, unspecified; Translations: [Low back pain, unspecified] Onset: 05-05-2022 Viral infection (3 sources) Anogenital (venereal) warts; Translations: [Herpes zoster] Onset: 12-03-2017 Episodic Results Test Name Value Interpretation Reference Range Facil ity CBC WITH AUTO DIFFERENTIALon 11-25-2022 Basophils (Bld) [#/Vol] 0.03 10*3/uL Normal 0.00-0.20 [facility] Comment on above: Performed By: #### L [id number] ####[facility] ([facility])[address] [place] [address] Basophils/100 WBC (Bld) 0.6 % Normal 0.0-1.0 [facility] Comment on above: Performed By: #### L [id number] ####[facility] ([facility])[address] [place] [address] Eosinophils (Bld) [#/Vol] 0.15 10*3/uL Normal 0.00-0.50 [facility] Comment on above: Performed By: #### L [id number] ####[facility] ([facility])[address] [place] [address] Eosinophils/100 WBC (Bld) 3.2 % Normal 0.0-6.0 [facility] Comment on above: Performed By: #### L [id number] ####[facility] [place] [address] Erythrocyte distribution width (RBC) [Ratio] 12.7 % Normal 11.5-15.0 [facility] Comment on above: Performed By: #### L [id number] ####[facility] ([facility] [place] [address] ERYTHROCYTE MEAN CORPUSCULAR HEMOGLOBIN CONCENTRATION (G/DL) BY AUTOMATED 34.6 g/dL Normal 32.0-35.0 [facility] Comment on above: Performed By: #### L [id number] ####[facility] ([facility])[address] [place] [address] Hematocrit (Bld) [Volume fraction] 41.9 % Normal 39.0-55.0 [facility] Comment on above: Performed By: #### L [id number] ####[facility])[address] [place] [address] Hemoglobin (Bld) [Mass/Vol] 14.5 g/dL Normal 13.0-17.0 [facility] Comment on above: Performed By: #### L [id number] ####[facility] [place] [address] Immature granulocytes (Bld) [#/Vol] 0.01 10*3/uL Normal 0.00-0.20 [facility] Comment on above: Performed By: #### L [id number] ####[facility] [place] [address] Immature granulocytes/100 WBC (Bld) 0.2 % Normal 0.0-1.0 [facility] Comment on above: Performed By: #### L [id number] ####[facility] [place] [address] Lymphocytes (Bld) [#/Vol] 1.07 10*3/uL Low 1.20-4.00 [facility] Comment on above: Performed By: #### L [id number] ####[facility])[address] [place] [address] Lymphocytes/100 WBC (Bld) 22.9 % Normal 20.0-45.0 [facility] Comment on above: Performed By: #### L [id number] ####[facility])[address] [place] [address] MCH (RBC) [Entitic mass] 31.2 pg Normal 27.0-33.0 [facility] Comment on above: Performed By: #### L [id number] ####[facility])[address] [place] [address] MCV (RBC) [Entitic vol] 90.1 fL Normal 82.0-98.0 [facility] Comment on above: Performed By: #### L [id number] ####[facility])[address] [place] [address] Monocytes (Bld) [#/Vol] 0.29 10*3/uL Normal 0.10-1.00 [facility] Comment on above: Performed By: #### L [id number] ####[facility] ([facility])[address] [facility] [place] [address] Monocytes/100 WBC (Bld) 6.2 % Normal 5.0-12.0 [facility] Comment on above: Performed By: #### L [id number] ####[facility] ([facility])[address] [place] [address] Neutrophils (Bld) [#/Vol] 3.13 10*3/uL Normal 1.60-7.60 [facility] Comment on above: Performed By: #### L [id number] ####[facility] ([facility])[address] [place] [address] Neutrophils/100 WBC (Bld) 66.9 % Normal 40.0-72.0 [facility] Comment on above: Performed By: #### L [id number] ####[facility] ([facility])[address] [place] [address] NRBC (PER 100 WBCS) BY AUTOMATED COUNT 0.0 % Normal 0 [facility] Comment on above: Performed By: #### L [id number] ####[facility] ([facility])[address] [place] [address] PLATELETS (10*3/UL) IN BLOOD AUTOMATED COUNT 312 10*3/uL Normal 150-400 [facility] Comment on above: Performed By: #### L [id number] ####[facility] ([facility])[address] [place] [address] RBC (Bld) [#/Vol] 4.65 10*6/uL Normal 4.20-5.70 [facility] Comment on above: Performed By: #### L [id number] ####[facility] ([facility])[address] [place] [address] WBC (Bld) [#/Vol] 4.68 10*3/uL Normal 4.00-10.60 [facility] Comment on above: Performed By: #### L [id number] ####[facility] [place] [address] COMPREHENSIVE METABOLIC PANE Thierry 11-25-2022 Albumin [Mass/Vol] 5.0 g/dL Normal 3.5-5.7 [facility] Comment on above: Performed By: #### L [id number] ####[facility] ([facility])[address] [place] [address] ALP [Catalytic activity/Vol] 64 U/L Normal 34-104 [facility] Comment on above: Performed By: #### L [id number] ####[facility] ([facility])[address] [place] [address] ALT [Catalytic activity/Vol] 19 U/L Normal 7-52 [facility] Comment on above: Performed By: #### L [id number] ####[facility])[address] [place] [address] Anion gap [Moles/Vol] 9 mmol/L Normal 7-20 [facility] Comment on above: Performed By: #### L [id number] ####[facility])[address] [place] [address] AST [Catalytic activity/Vol] 15 U/L Normal 13-39 [facility] Comment on above: Performed By: #### L [id number] ####[facility])[address] [place] [address] Bilirubin [Mass/Vol] 0.3 mg/dL Normal 0.3-1.0 [facility] Comment on above: Performed By: #### L [id number] ####[facility] ([facility])[address] [place] [address] Calcium [Mass/Vol] 9.2 mg/dL Normal 8.6-10.3 [facility] Comment on above: Performed By: #### L [id number] ####[facility] ([facility])[address] [place] [address] Chloride [Moles/Vol] 105 mmol/L Normal 98-107 [facility] Comment on above: Performed By: #### L [id number] ####[facility] ([facility])[address] [place] [address] CO2 [Moles/Vol] 29 mmol/L Normal 21-31 [facility] Comment on above: Performed By: #### L [id number] ####[facility] ([facility])[address] [place] [address] Creatinine [Mass/Vol] 0.83 mg/dL Normal 0.70-1.30 [facility] Comment on above: Performed By: #### L [id number] ####[facility] ([facility])[address] [place] [address] GLOMERULAR FILTRATION RATE ML/MIN/1.73 SQ M.PREDICTED 118.5 mL/min/1.73m*2 Normal >60.0 [facility] Comment on above: Result Comment: The [facility]???s estimated glomerular filtration rate (eGFR) will no longer include consideration of race in its calculation. The National Kidney Foundation???s eGFR Task Force developed new recommendations for the estimation of the glomerular filtration rate in the [place] They recommend immediate implementation of the new equation refit without the race variable in all laboratories because the calculation does not include race. In addition to not including race in the calculation and reporting, it included diversity in its development, and has acceptable performance characteristics and potential consequences that do not disproportionately affect any one group of individuals. Performed By: #### L [id number] ####[facility] ([facility])[address] [place] [address] Glucose [Mass/Vol] 93 mg/dL Normal 70-100 [facility] Comment on above: Performed By: #### L [id number] ####[facility] ([facility])[address] [place] [address] Potassium [Moles/Vol] 3.8 mmol/L Normal 3.5-5.1 [facility] Comment on above: Performed By: #### L [id number] ####[facility] ([facility])[address] [place] [address] Protein [Mass/Vol] 7.5 g/dL Normal 6.0-8.3 [facility] Comment on above: Performed By: #### L [id number] ####[facility] ([facility])[address] [place] [address] Sodium [Moles/Vol] 139 mmol/L Normal 136-145 [facility] Comment on above: Performed By: #### L [id number] ####[facility] ([facility])[address] [place] [address] Urea nitrogen [Mass/Vol] 10 mg/dL Normal 7-25 [facility] Comment on above: Performed By: #### L [id number] ####[facility] ([facility])[address] [place] [address] UREA NITROGEN/CREATININE (MASS RATIO) IN SER/PLAS 12.0 Normal [facility] Comment on above: Performed By: #### L [id number] ####[facility] ([facility])[address] [place] [address] Consulton 11-25-2022 Consult [id number] Anam Kat 1990 M Date Provider Department Center 11/25/2022 Rob-NKECHI RO [facility] SURG Second Fl No family history on file Level of Service:23343 [place] OFFICE/OUTPATIENT NEW LOW MDM 30-44 MINUTES Reason for Visit and Comments: Consult [484] - Anam Shey is here for a new patient consultation for Anogenital warts in male; referred by Farzana Kelly. Normal [facility] HEMOGLOBIN A1Con 11-25-2022 Glucose [Mass/Vol] 100 mg/dL Normal [facility] Comment on above: Performed By: #### L [id number] ####[facility] ([facility])[address] [place] [address] HbA1c (Bld) [Mass fraction] 5.1 % Normal 4.0-6.0 [facility] Comment on above: Performed By: #### L [id number] ####[facility] ([facility])[address] [place] [address] HEPATITIS B SURFACE ANTIBODY QUANTon 11-25-2022 HEPATITIS B VIRUS SURFACE AB (MIU/ML) IN SERUM 56.37 mIU/mL Normal [facility] Comment on above: Result Comment: INTE RPRETATION: NONREACTIVE<8.00 mIU/mL INDETERMINATE8.00 - 12.00 mIU/mL REACTIVE>12 mIU/mL Performed By: #### L [id number] ####[facility] ([facility])[address] [place] [address] HEPATITIS C ANTIBODYon 11-25 HEPATITIS C VIRUS AB PRESENCE IN SERUM Non-Reactive Normal Nonreactive [facility] Comment on above: Performed By: #### L [id number] ####[facility] [place] [address] LIPID PANELon 11-25-2022 CHOL/HDL 3.7 mg/dL Normal [facility] Comment on above: Performed By: #### L [id number] ####[facility] [place] [address] Cholesterol [Mass/Vol] 198 mg/dL Normal 120-200 [facility] Comment on above: Performed By: #### L [id number] ####[facility] ([facility])[address] [place] [address] Magnesium [Mass/Vol] 248 mg/dL High 40-149 [facility] Comment on above: Result Comment: TRIG LYCERIDE REFERENCE RANGE: 20 YEARS AND OLDER CARDIOVASCULAR RISK LESS THAN 150 mg/dL LOW RISK 150 TO 199 mg/dL BORDERLINE RISK 200 mg/dL AND GREATER HIGH RISK Performed By: #### L [id number] ####[facility] ([facility])[address] [place] [address] Magnesium [Mass/Vol] 94 mg/dL Normal 0-160 [facility] Comment on above: Performed By: #### L [id number] ####[facility] [place] [address] Magnesium [Mass/Vol] 54 mg/dL Normal 23-92 [facility] Comment on above: Performed By: #### L [id number] ####[facility] [place] [address] NON HDL CHOL. (LDL+VLDL) 144 Normal [facility] Comment on above: Performed By: #### L [id number] ####[facility] ([facility])[address] [place] [address] TOTAL VLDL-C 50 mg/dL High 0-40 [facility] Comment on above: Performed By: #### L [id number] ####[facility] ([facility] [place] [address] Labon 11-25-2022 Lab [id number] Anam Kat 1990 M Date Provider Department [place] 11/25/2022 2240-[facility] OPD LAB RESOURCE [facility]PD [facility] No family history on file Normal [facility] RPRon 11-25-2022 REAGIN AB PRESENCE IN SERUM BY RPR Non-Reactive Normal Nonreactive [facility] Comment on above: Performed By: #### L [id number] ####[facility] ([facility])[address] [place] [address] T CELL SUBSET ANALYSISon CD3 74.88 % Normal 65.00-90.00 [facility] Comment on above: Performed By: #### L [id number] ####[facility] ([facility])[address] [place] [address] CD3 ABSOLUTE 803 cells/mm3 Normal 760-2130 [facility] Comment on above: Performed By: #### L [id number] ####[facility] ([facility])[address] [place] [address] CD4 28.70 % Low 40.00-70.00 [facility] Comment on above: Performed By: #### L [id number] ####[facility] ([facility])[address] [place] [address] CD4 ABSOLUTE 308 cells/mm3 Low 430-1185 [facility] Comment on above: Performed By: #### L [id number] ####[facility] [place] [address] CD4:CD8 0.64 Low 1.00-4.00 [facility] Comment on above: Performed By: #### L [id number] ####[facility] ([facility] [place] [address] CD8 45.09 % High 15.00-40.00 [facility] Comment on above: Performed By: #### L [id number] ####[facility] ([facility])[address] [place] [address] CD8 ABSOLUTE 483 cells/mm3 Normal 180-865 [facility] Comment on above: Performed By: #### L [id number] ####[facility] ([facility])[address] [place] [address] URINALYSISon 11-25-2022 BILIRUBIN, TOTAL PRESENCE IN URINE Negative Normal Negative [facility] Comment on above: Order Comment: Micro scopics not performed on urines with negative chemical reactions unless requested on original order. Performed By: #### L [id number] ####[facility] ([facility])[address] [place] [address] Clarity (U) Clear Normal Clear [facility] Comment on above: Order Comment: Micro scopics not performed on urines with negative chemical reactions unless requested on original order. Performed By: #### L [id number] ####[facility] ([facility])[address] [place] [address] Color (U) Yellow Normal Yellow [facility] Comment on above: Order Comment: Micro scopics not performed on urines with negative chemical reactions unless requested on original order. Performed By: #### L [id number] ####[facility] ([facility])[address] [place] [address] Glucose (U) [Mass/Vol] Negative Normal Negative [facility] Comment on above: Order Comment: Micro scopics not performed on urines with negative chemical reactions unless requested on original order. Performed By: #### L [id number] ####[facility] ([facility])[address] [place] [address] HEMOGLOBIN PRESENCE IN URINE Negative Normal Negative [facility] Comment on above: Order Comment: Micro scopics not performed on urines with negative chemical reactions unless requested on original order. Performed By: #### L [id number] ####[facility] ([facility])[address] [place] [address] Ketones Ql (U) Negative Normal Negative [facility] Comment on above: Order Comment: Micro scopics not performed on urines with negative chemical reactions unless requested on original order. Performed By: #### L [id number] ####[facility] [place] [address] LEUKOCYTE ESTERASE PRESENCE IN URINE BY TEST STRIP Negative Normal Negative [facility] Comment on above: Order Comment: Micro scopics not performed on urines with negative chemical reactions unless requested on original order. Performed By: #### L [id number] ####[facility] ([facility])[address] [place] [address] NITRITE PRESENCE IN URINE Negative Normal Negative [facility] Comment on above: Order Comment: Micro scopics not performed on urines with negative chemical reactions unless requested on original order. Performed By: #### L [id number] ####[facility] ([facility])[address] [place] [address] pH (U) 7.0 [pH] Normal 5.0-8.0 [facility] Comment on above: Order Comment: Micro scopics not performed on urines with negative chemical reactions unless requested on original order. Performed By: #### L [id number] ####[facility] ([facility])[address] [place] [address] Protein (U) [Mass/Vol] Negative Normal Negative [facility] Comment on above: Order Comment: Micro scopics not performed on urines with negative chemical reactions unless requested on original order. Performed By: #### L [id number] ####[facility] ([facility])[address] [place] [address] Specific gravity (U) [Rel density] 1.014 Low 1.015-1.020 [facility] Comment on above: Order Comment: Micro scopics not performed on urines with negative chemical reactions unless requested on original order. Performed By: #### L [id number] ####[facility] ([facility])[address] [place] [address] [place] 11-21-2022 Refill [id number] Anam Kat 1990 M Date Provider Department Center 11/21/2022 FARZANA PHIPPS [facility] Marce Heal No family history on file Reason for Visit and Comments: Med Refill [[id number]] [facility] 30on 11-08-2022 30 patient actively participated in the development of the care plan [facility] Office Visiton 11-07-2022 Follow-up visit [id number] Harmonua 1990 M Date Provider Department Center 11/07/2022 F[facility] PHIPPS [facility] Marce Heal No family history on file Level of Service:67611 [place] OFFICE/OUTPATIENT ESTABLISHED MOD MDM 30-39 MIN Reason for Visit and Comments: HIV Positive/AIDS [109] [facility] [place] 09-27-2022 Refill [id number] Dana Katshua 1990 M Date Provider Department [place] 09/27/2022 FARZANA PHIPPS C CARE Marce Heal No family history on file Reason for Visit and Comments: Med Refill [[id number]] [facility] [place] 08-01-2022 Refill [id number] Dana Katshua 1990 M Date Provider Department Center 08/01/2022 FARZANA PHIPPS C CARE Marce Heal No family history on file Reason for Visit and Comments: Med Refill [[id number]] [facility] Refill [id number] Dana Katshua 1990 M Date Provider Department Center 08/01/2022 147-DE ANAYELI [facility] Marce Heal No family history on file Reason for Visit and Comments: Med Refill [[id number]] [facility] Patient Outreachon Patient Outreach [id number] Dana Katshua 1990 M Date Provider Department Center 05/30/2022 3600-KILLIAN CAPPSA [facility] Marce Heal No family history on file [facility] Office Visiton 05-05-2022 Follow-up visit [id number] Harmonshua 1990 M Date Provider Department Center 05/05/2022 [facility]ZANA PHIPPS [facility] Marce Heal No family history on file Level of Service:[id number] [place] OFFICE/OUTPATIENT ESTABLISHED MOD MDM 30-39 MIN Reason for Visit and Comments: HIV Positive/AIDS [109] lesion [Other] - Between buttocks, started a few months after shaving. No pain, discomfort, discharge or itching. Normal [facility] Refillon 05-05-2022 Refill [id number] Anam Kat 1990 M Date Provider Department Center 05/05/2022 FARZANA PHIPPS [facility] Marce Heal No family history on file Reason for Visit and Comments: Med Refill [[id number]] Normal [facility] Covid-19 PCR (CVDTB)on 04-01 SARS-CoV-2 (COVID-19) RNA RINA+probe Ql (Unsp spec) Not detected Normal NOT DETECTED [facility] Comment on above: Result Comment: This test is not yet approved or cleared by the [place] FDA. When there are no FDA-approved or cleared tests available, and other criteria are met, FDA can make tests available under an emergency access mechanism called an Emergency Use Authorization (EUA). The EUA for this test is supported by the [place] of Health and Human Service's (HHS's) declaration that circumstances exist to justify the emergency use of in vitro diagnostics for the detection and/or diagnosis of the virus that causes COVID-19. This EUA will remain in effect (meaning this test can be used) for the duration of the COVID-19 declaration justifying emergency of IVDs, unless it is terminated or revoked by FDA (after which the test may no longer be used). When diagnostic testing is negative, the possibility of a false negative should be considered in the context of a patient's recent exposures and the presence of clinical signs and symptoms consistent with SARS-CoV-2. Performed By: #### C VDTBH #### [facility] [address] [place] [address] Dr. Jade Cline INFLUENZA A AND B AGon 04-25 INFLUBNEG SEE BELOW Normal [facility] Comment on above: Result Comment: Nega tive for Flu B protein antigen. Infection due to Flu B cannot be ruled out. Flu B antigen in the sample may be below the detection limit of the test. Performed By: #### I NFLUAB #### [facility] [address] [address] [address] Jade Cline INFLUENZA A AG Positive Abnormal NEGATIVE SEE COMMENT [facility] Comment on above: Performed By: #### I NFLUAB #### [facility] [address] [address] [address] Jade Cline INFLUENZA B AG Negative Normal NEGATIVE SEE COMMENT [facility] Comment on above: Performed By: #### I NFLUAB #### [facility] [address] [address] [address] Jade Cline INFLUPOSH SEE BELOW Normal [facility] Comment on above: Result Comment: NOTE : Live attenuated influenzae vaccine viruses can cause a positive result for a rapid influenza diagnostic test if administered up to 7 days prior to rapid testing. Performed By: #### I NFLUAB #### [facility] [address] [address] [address] Jade Cline INTERNAL CONTROLS Within Normal Limits Normal Wi thin Normal Limits [facility] Comment on above: Performed By: #### I NFLUAB #### [facility] [address] [address] [address] Jade Cline 36on 03-10-2022 36 Reminder call, left message./hr Normal [facility] Orders Onlyon 03-07-2022 Orders Only [id number] Anam Kat 1990 M Date Provider Department Center 03/07/2022 FARZANA PHIPPS [facility] Marce Heal No family history on file Normal [facility] Coding Summaryon 05-22-2020 Coding Summary CODING DATE: 05/22/2020 [facility] STATUS: Home PAYOR: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 type pain, in which he driver snot want any prednisone, due to HIV diagnosis, and doesn't want to be any further immune suppressed. Pt is currently taking flexeril, with minimal relief as well as NSAIDS. Treated with 600 mg oral ibuprofen here in the ED, as last dose was approximately 8 am. Patient has concern as he still continues to have left-sided neck pain in which he declines prednisone treatment at this time is wondering what else we may do for pain. States he has tried other muscle relaxers including Zanaflex tizanidine and baclofen. Stated we may try Norflex here in the emergency department 60 mg IM injection which patient is in agreement with. Will require follow-up with primary care provider in which he understands and agrees with plan of care. 16:32 Pt states he is beginning to get some relief in regards to Norflex injection. Discussed discontinuing Flexeril until completing the Norflex prescription in which he agrees and understands plan of care. He understands not to drive or drink alcohol while taking this medication as it may make him drowsy. He understands to continue Tylenol or ibuprofen as needed for pain rest ice or use heating pad the left side of the neck in which patient is in agreement with. Understands to follow closely with his primary care provider and to return here to the emergency department for any worsening or concerning symptoms including numbness tingling or weakness of the upper or lower extremities worsening pain or any other worsening or concerning symptoms in which patient agrees and understands plan of care. Impression and Plan Diagnosis Neck pain on left side ([id number] M54.2, Discharge, Medical) Plan Condition: Stable. Disposition: Discharged: Time 05/18/2020 16:28:00, to home. Prescriptions: Launch prescriptions Pharmacy: orphenadrine 100 mg oral tablet, extended release (Prescribe): 100 mg = 1 tab(s), PO, BID, for 7 day(s), 14 tab(s), 0 Refill(s). Patient was given the following educational materials: Cervical Radiculopathy, Wxng-qe-Talc, Cervical Radiculopathy, Fmof-yy-Esai, Cervical Radiculopathy, Xtob-gh-Xdna. Follow up with: Desire Jenkins Within 3 to 5 days Please follow-up with your primary care provider in 3 to 5 days. You were seen and evaluated here in the emergency department in regards to neck pain over the last several weeks however worse today. You had a CT scan of the cervical spine completed which noted mild disc bulging at a couple areas of the cervical spine. This is most likely causing some nerve pain. At this time you declined treatment with prednisone due to immunosuppression. You were treated here in the emergency department with a 600 mg ibuprofen as well as 60 mg IM injection of Norflex. At this time a prescription for Norflex 100 mg orally every 12 hours over the next 7 days is sent to [facility] pharmacy for you in [place]. Discontinue Flexeril until Norflex prescription is completed. Follow closely with primary care provider. Continue to try some range of motion with the left shoulder as well as the neck and continue to ice and heat the left side of the neck. You may return here to the emergency department for any worsening or concerning symptoms.. Counseled: Patient, Regarding diagnosis, Regarding diagnostic results, Regarding treatment plan, Patient indicated understanding of instructions. [Electronically Signed on: 05/18/2020 16:33 EST] Abram Carrera PA-C [Electronically Signed on: 05/18/2020 16:39 EST] Abram Carrera PA-C [Verified on: 05/18/2020 16:33 EST] Abram Carrera PA-C 05/18/2020 16:38 [facility] pharmacy in [place] called in regards to the pt. State that they do not currently have orphenadrine, as it is on back order. I tried contacting the pt, and his emergency contact to try to get ahold of the pt, both rang busy. [Electronically Signed on: 05/18/2020 16:39 EST] Abram Carrera PA-C 16:43 I was able to get ahold of the pt, prescription sent to [facility] in [place], [place]. [Electronically Signed on: 05/18/2020 16:43 EST] Abram Carrera PA-C [facility] ED Patient Education Noteon 05-18-2020 ED Patient Education Note Education Materials Orthopedics Cervical Radiculopathy Cervical radiculopathy means that a nerve in the neck (a cervical nerve) is pinched or bruised. This can happen because of an injury to the cervical spine (vertebrae) in the neck, or as a normal part of getting older. This can cause pain or loss of feeling (numbness) that runs from your neck all the way down to your arm and fingers. Often, this condition gets better with rest. Treatment may be needed if the condition does not get better. What are the causes? ? A neck injury. ? A bulging disk in your spine. ? Muscle movements that you cannot control (muscle spasms). ? Tight muscles in your neck due to overuse. ? Arthritis. ? Breakdown in the bones and joints of the spine (spondylosis) due to getting older. ? Bone spurs that form near the nerves in the neck. What are the signs or symptoms? ? Pain. The pain may: ? Run from the neck to the arm and hand. ? Be very bad or irritating. ? Be worse when you move your neck. ? Loss of feeling or tingling in your arm or hand. ? Weakness in your arm or hand, in very bad cases. How is this treated? In many cases, treatment is not needed for this condition. With rest, the condition often gets better over time. If treatment is needed, options may include: ? Wearing a soft neck collar (cervical collar) for short periods of time, as told by your doctor. ? Doing exercises (physical therapy) to strengthen your neck muscles. ? Taking medicines. ? Having shots (injections) in your spine, in very bad cases. ? Having surgery. This may be needed if other treatments do not help. The type of surgery that is used depends on the cause of your condition. Follow these instructions at home: If you have a soft neck collar: ? Wear it as told by your doctor. Remove it only as told by your doctor. ? Ask your doctor if you can remove the collar for cleaning and bathing. If you are allowed to remove the collar for cleaning or bathing: ? Follow instructions from your doctor about how to remove the collar safely. ? Clean the collar by wiping it with mild soap and water and drying it completely. ? Take out any removable pads in the collar every 1?2 days. Wash them by hand with soap and water. Let them air-dry completely before you put them back in the collar. ? Check your skin under the collar for redness or sores. If you see any, tell your doctor. Managing pain ? Take tghg-xfw-jxypevk and prescription medicines only as told by your doctor. ? If told, put ice on the painful area. ? If you have a soft neck collar, remove it as told by your doctor. ? Put ice in a plastic bag. ? Place a towel between your skin and the bag. ? Leave the ice on for 20 minutes, 2?3 times a day. ? If using ice does not help, you can try using heat. Use the heat source that your doctor recommends, such as a moist heat pack or a heating pad. ? Place a towel between your skin and the heat source. ? Leave the heat on for 20?30 minutes. ? Remove the heat if your skin turns bright red. This is very important if you are unable to feel pain, heat, or cold. You may have a greater risk of getting burned. ? You may try a gentle neck and shoulder rub (massage). Activity ? Rest as needed. ? Return to your normal activities as told by your doctor. Ask your doctor what activities are safe for you. ? Do exercises as told by your doctor or physical therapist. ? Do not lift anything that is heavier than 10 lb (4.5 kg) until your doctor tells you that it is safe. General instructions ? Use a flat pillow when you sleep. ? Do not drive while wearing a soft neck collar. If you do not have a soft neck collar, ask your doctor if it is safe to drive while your neck heals. ? Ask your doctor if the medicine prescribed to you requires you to avoid driving or using heavy machinery. ? Do not use any products that contain nicotine or tobacco, such as cigarettes, e-cigarettes, and chewing tobacco. These can delay healing. If you need help quitting, ask your doctor. ? Keep all follow-up visits as told by your doctor. This is important. Contact a doctor if: ? Your condition does not get better with treatment. Get help right away if: ? Your pain gets worse and is not helped with medicine. ? You lose feeling or feel weak in your hand, arm, face, or leg. ? You have a high fever. ? You have a stiff neck. ? You cannot control when you poop or pee (have incontinence). ? You have trouble with walking, balance, or talking. Summary ? Cervical radiculopathy means that a nerve in the neck is pinched or bruised. ? A nerve can get pinched from a bulging disk, arthritis, an injury to the neck, or other causes. ? Symptoms include pain, tingling, or loss of feeling that goes from the neck into the arm or hand. ? Weakness in your arm or hand can happen in very bad cases. ? Treatment may include resting, wearing a soft neck collar, and doing exercises. You might need to take medicines for pain. In very bad cases, shots or surgery may be needed. This information is not intended to replace advice given to you by your health care provider. Make sure you discuss any questions you have with your health care provider. Document Released: 04/05/2012 Document Revised: 03/08/2019 Document Reviewed: 03/08/2019 Pressable Patient Education ? 2019 [employer]. Normal [facility] ED Patient Summaryon 021 ED Patient Summary [facility] - Emergency Department [address] [place] [address] PATIENT DISCHARGE INSTRUCTIONS Patient Information Name: ANAM KAT Age: 29 Years Date of : 1990 Reason For Visit: Neck pain; C/O NECK PAIN Arrival Time: 05/18/2020 14:25:22 Primary Care Physician: Desire Jenkins DO Attending Physician: Payam Trevino DO Comment: Visit Diagnosis: Diagnoses This Visit Neck pain ([id number]) Neck pain on left side (M54.2) Prescription Information: If you have been given a prescription for narcotics, seek immediate medical attention if you have any difficulty breathing or any sudden status changes such as confusion and sleepiness. If you or anyone you know is experiencing suicidal thoughts, mental health, alcohol and/or drug addiction problems; contact the [facility] 21/11 Crisis Hotline -Text 4HWAI to 386975. If you received any narcotics, sedation, or any other medication that causes drowsiness for the next 24 hours, unless otherwise directed: ? Do not drive a car. ? Do not operate machinery such as power tools, lawn mowers, drills, sewing machines, or stoves ? Avoid alcoholic beverages and drugs for allergies, nerves, or sleep ? Do not make important personal or business decisions or sign any legal documents With: Address: When: Desire Jenkins [address] [place] [address] Business (1) Within 3 to 5 days Comments: Please follow-up with your primary care provider in 3 to 5 days. You were seen and evaluated here in the emergency department in regards to neck pain over the last several weeks however worse today. You had a CT scan of the cervical spine completed which noted mild disc bulging at a couple areas of the cervical spine. This is most likely causing some nerve pain. At this time you declined treatment with prednisone due to immunosuppression. You were treated here in the emergency department with a 600 mg ibuprofen as well as 60 mg IM injection of Norflex. At this time a prescription for Norflex 100 mg orally every 12 hours over the next 7 days is sent to [facility] pharmacy for you in [place]. Discontinue Flexeril until Norflex prescription is completed. Follow closely with primary care provider. Continue to try some range of motion with the left shoulder as well as the neck and continue to ice and heat the left side of the neck. You may return here to the emergency department for any worsening or concerning symptoms. Medication Information: The exam and treatment you received today in the [facility] Emergency Department were for an urgent problem and are not intended as complete care. It is important for you to follow up with a doctor, nurse practitioner, or physician?s ob gyn physician assistant for ongoing care. If your symptoms become worse or you do not improve as expected and you are unable to reach your usual health care provider, you should return to the Emergency Department, we are available 24 hours a day. For those patients who have received Radiology results, the interpretation of your X-ray as given to you by our Emergency Department physician is only a preliminary report. The Radiologist will review your films and if there is a change in the diagnosis you will be notified by phone. Please make sure you have provided a working phone number so we can reach you if necessary. In the event that you had a lab culture while you were a patient in the Emergency Department, you will be notified by phone if there is a need to change your antibiotic. Please make sure you have provided a working phone number so we can reach you if necessary. [facility] Emergency Department has provided you with a complete list of medications post discharge. Please inform your manager helpdesk/provider of your visit and for further instruction on these medications. Any specific questions regarding your chronic medications and dosages should be discussed with your primary care physician(s) and/or pharmacist. New Medications [address], [place] [id number], [phone] orphenadrine (orphenadrine 100 mg oral tablet, extended release) 1 tab(s) Oral 2 times a day for 7 Days. Refills: 0. Medications to Continue That Have Not Changed Other Medications bictegravir/emtricitab ine/tenofovir (Biktarvy oral tablet) 1 tab(s) Oral every day. cyclobenzaprine (Flexeril) 10 Milligram Oral 3 times a day. gabapentin (gabapentin 300 mg oral capsule) 1 cap(s) Oral 3 times a day. sulfamethoxazole-trime thoprim (Bactrim DS 800 mg-160 mg oral tablet) 1 tab(s) Oral every day. Visit Information Allergies: Substance Reaction Symptoms Type Comments No Known Medication Allergies Drug Vital Signs: Vitals and Measurements this Visit (last charted value for your 05/18/2020 visit) Vital Signs This Visit Temperature Oral: 36.7 DegC Peripheral Pulse Rate: 72 bpm Respiratory Rate: 18 br/min Systolic Blood Pressure: 158 mmHg Diastolic Blood Pressure: 98 mmHg Mean Arterial Pressure Cuff-Monitor: 127 mmHg SpO2: 100 % Oxygen Therapy: Room air Measurements This Visit Height/Length Dosin.800 cm Height/Length Estimated: 177.800 cm Weight Dosin.840 kg Weight Estimated: 74.840 kg Problems List: Problem Onset Comments No Problems found Patient Education Cervical Radiculopathy Cervical radiculopathy means that a nerve in the neck (a cervical nerve) is pinched or bruised. This can happen because of an injury to the cervical spine (vertebrae) in the neck, or as a normal part of getting older. This can cause pain or loss of feeling (numbness) that runs from your neck all the way down to your arm and fingers. Often, this condition gets better with rest. Treatment may be needed if the condition does not get better. What are the causes? ? A neck injury. ? A bulging disk in your spine. ? Muscle movements that you cannot control (muscle spasms). ? Tight muscles in your neck due to overuse. ? Arthritis. ? Breakdown in the bones and joints of the spine (spondylosis) due to getting older. ? Bone spurs that form near the nerves in the neck. What are the signs or symptoms? ? Pain. The pain may: ? Run from the neck to the arm and hand. ? Be very bad or irritating. ? Be worse when you move your neck. ? Loss of feeling or tingling in your arm or hand. ? Weakness in your arm or hand, in very bad cases. How is this treated? In many cases, treatment is not needed for this condition. With rest, the condition often gets better over time. If treatment is needed, options may include: ? Wearing a soft neck collar (cervical collar) for short periods of time, as told by your doctor. ? Doing exercises (physical therapy) to strengthen your neck muscles. ? Taking medicines. ? Having shots (injections) in your spine, in very bad cases. ? Having surgery. This may be needed if other treatments do not help. The type of surgery that is used depends on the cause of your condition. Follow these instructions at home: If you have a soft neck collar: ? Wear it as told by your doctor. Remove it only as told by your doctor. ? Ask your doctor if you can remove the collar for cleaning and bathing. If you are allowed to remove the collar for cleaning or bathing: ? Follow instructions from your doctor about how to remove the collar safely. ? Clean the collar by wiping it with mild soap and water and drying it completely. ? Take out any removable pads in the collar every 1?2 days. Wash them by hand with soap and water. Let them air-dry completely before you put them back in the collar. ? Check your skin under the collar for redness or sores. If you see any, tell your doctor. Managing pain ? Take hitk-jaj-rqictgr and prescription medicines only as told by your doctor. ? If told, put ice on the painful area. ? If you have a soft neck collar, remove it as told by your doctor. ? Put ice in a plastic bag. ? Place a towel between your skin and the bag. ? Leave the ice on for 20 minutes, 2?3 times a day. ? If using ice does not help, you can try using heat. Use the heat source that your doctor recommends, such as a moist heat pack or a heating pad. ? Place a towel between your skin and the heat source. ? Leave the heat on for 20?30 minutes. ? Remove the heat if your skin turns bright red. This is very important if you are unable to feel pain, heat, or cold. You may have a greater risk of getting burned. ? You may try a gentle neck and shoulder rub (massage). Activity ? Rest as needed. ? Return to your normal activities as told by your doctor. Ask your doctor what activities are safe for you. ? Do exercises as told by your doctor or physical therapist. ? Do not lift anything that is heavier than 10 lb (4.5 kg) until your doctor tells you that it is safe. General instructions ? Use a flat pillow when you sleep. ? Do not drive while wearing a soft neck collar. If you do not have a soft neck collar, ask your doctor if it is safe to drive while your neck heals. ? Ask your doctor if the medicine prescribed to you requires you to avoid driving or using heavy machinery. ? Do not use any products that contain nicotine or tobacco, such as cigarettes, e-cigarettes, and chewing tobacco. These can delay healing. If you need help quitting, ask your doctor. ? Keep all follow-up visits as told by your doctor. This is important. Contact a doctor if: ? Your condition does not get better with treatment. Get help right away if: ? Your pain gets worse and is not helped with medicine. ? You lose feeling or feel weak in your hand, arm, face, or leg. ? You have a high fever. ? You have a stiff neck. ? You cannot control when you poop or pee (have incontinence). ? You have trouble with walking, balance, or talking. Summary ? Cervical radiculopathy means that a nerve in the neck is pinched or bruised. ? A nerve can get pinched from a bulging disk, arthritis, an injury to the neck, or other causes. ? Symptoms include pain, tingling, or loss of feeling that goes from the neck into the arm or hand. ? Weakness in your arm or hand can happen in very bad cases. ? Treatment may include resting, wearing a soft neck collar, and doing exercises. You might need to take medicines for pain. In very bad cases, shots or surgery may be needed. This information is not intended to replace advice given to you by your health care provider. Make sure you discuss any questions you have with your health care provider. Document Released: 04/05/2012 Document Revised: 03/08/2019 Document Reviewed: 03/08/2019 [employer] Patient Education ? 2019 [employer] Viruses or Bacteria What?s got you sick? Antibiotics only treat bacterial infections. Viral illnesses cannot be treated with antibiotics. When an antibiotic is not prescribed, ask your healthcare professional for tips on how to relieve symptoms and feel better. Usual Cause Illness Viruses Bacteria Antibiotic Needed Cold/Runny Nose NO Bronchitis/Chest Cold (in otherwise healthy children and adults) NO Whooping Cough Yes Flu NO Strep Throat Yes Sore Throat (except strep) NO Fluid in the middle ear (otitis media with effusion) NO Urinary Tract Infection Yes Antibiotics Aren?t Always the Answer www.cdc.gov/getsmart GET SMART Know When Antibiotics Work U.S. Department of Health and Human Services Centers for Disease Control and Prevention December 2013 Normal [facility] Vital Signs Date Time Vital Sign Value Performing Clinician Socratesi spring 05-03-2023 13:23050 Body height 177.8 cm Payam Salguero DO Work Phone: [email or web address] 05-03-2023 13:23-0500 Body mass index (BMI) [Ratio] 22.96 kg/m2 Payam Salguero DO Work Phone: [email or web address] 05-03-2023 13:23-0500 Body weight 72.58 kg Payam Salguero DO Work Phone: [email or web address] Encounters Encounter Date Encounter Type Care Provider Facility Start: 05-03-2023 End: 05-03-2023 Office outpatient new 45 minutes Payam Salguero DO Work Phone: [facility] Comment on above: Calculus of gallblad romy with chronic cholecystitis without obstruction (Primary Dx); History of HIV infection ([facility]) Start: 11-25-2022 End: 11-25-2022 ambulatory NEKCHIROSALIE RO [facility] Start: 11-07-2022 End: 11-07-2022 ambulatory FARZANA M ROBIN [facility] Start: 05-05-2022 End: 05-05-2022 ambulatory FARZANA KELLY [facility] Start: 04-25-2022 End: 04-25-[address] SAMSON CORONEL Facility: Plan of Treatment Date Care Activity Detail Author Start: 07-25-2031 DTaP,Tdap and Td Vaccines (7 - Td or Tdap) DTaP,Tdap and Td Vaccines (7 - Td or Tdap) [facility] Start: 05-03-2024 Adult BMI Screening Adult BMI Screen ing [facility] Start: 05-03-2024 Tobacco Screening Tobacco Screening [facility] Start: 05-05-2023 End: 05-02-2024 Unlisted [facility] Procedure Unlisted [facility] Procedure Procedures Routine Calculus of gallbladder with chronic cholecystitis without obstruction Expected: 05/05/2023, Expires: 05/02/2024 [facility] Comment on above: Expected: 05/05/2023 , Expires: 05/02/2024 Start: 05-05-2023 End: 05-05-2023 Patient encounter procedure 05/05/2023 7:30 AM EST Office Visit [facility] [address] [place] [id number] Payam Salguero DO [address] [id number] [facility] Start: 12-30-2022 Influenza vaccination Influenza Vacc ine [facility] Start: 2001 Depression Screening Depression Scre ening [facility] Start: 1989 Tobacco Counseling Tobacco Counselin g [facility] End: 05-02-2024 CBC panel - Blood by Automated count CBC without diff Lab Routine Calculus of gallbladder with chronic cholecystitis without obstruction 1 Occurrences starting 05/03/2023 until 05/02/2024 [facility]: Comment on above: 1 Occurrences starti ng 05/03/2023 until 05/02/2024 End: 05-02-2024 Comprehensive metabolic 2000 panel - Serum or Plasma Comprehensive metabolic panel Lab Routine Calculus of gallbladder with chronic cholecystitis without obstruction 1 Occurrences starting 05/03/2023 until 05/02/2024 [facility] [employer] [facility] Comment on above: 1 Occurrences starti ng 05/03/2023 until 05/02/2024 End: 05-02-2024 Lipase [Enzymatic activity/volume] in Serum or Plasma Lipase Lab Routine Calculus of gallbladder with chronic cholecystitis without obstruction 1 Occurrences starting 05/03/2023 until 05/02/2024 [facility] Comment on above: 1 Occurrences starti ng 05/03/2023 until 05/02/2024 Immunizations Immunization Date Immunization Notes Care Provider Fa cili 07-24-2021 tetanus toxoid, redu ebenezer diphtheria toxoid, and acellular pertussis vaccine, adsorbed Payam Salguero DO Work Phone: [facility] [employer] 01-30-2020 influenza virus vaccine, unspecified formulation Payam Salguero DO Work Phone: [facility] [employer] [facility] 01-23-2020 influenza, injectabl e, quadrivalent, preservative free Payam Salguero DO Work Phone: [facility] Payers Date Payer Category Payer Unknown [id number] 2022 Unknown ANDREY [employer] OUT OF STATE PPO/TRUST [id number] 2022-Present [phone] [address] [place] [address] [id number] 1989 Unknown [id number] 1959 Unknown [id number] Social History Date Type Detail Facility Start: 07-24-2022 [facility] History of tobacco use Cigarette Smoker P [facility] History of tobacco use Tobacco U se Types Packs/Day Years Used Date Smoking Tobacco: Every Day Cigarettes 0.3 11 Vaping/E-cigarettes Smokeless Tobacco: Never [facility] Start: 06-10-2020 End: 07-24-2022 Cigarettes smoked current (pack per day) - Reported 0.3 [facility] Start: 07-24-2022 Tobacco use and exposure Smokeless tobacco non-user [facility] Start: 05-03-2023 Alcohol intake Current drinke r of alcohol (finding) [facility] Start: 06-10-2020 End: 05-03-2023 Tobacco use panel [facility] Housing Instability Unknown [facility] Start: 04-11-2019 Alcohol Comment Occasionally [facility] Start: 1989 Sex Assigned At Not on file P [facility] History of Present illness Narrative 05-03-2023 Payam Salguero, DO - 05/03/2023 1:15 PM EST Note Date & Type Note Facility 05-03-2023 History of Present illness Narrative Images from the original note were not included. [facility] [address] [id number] CONSULT NOTE Anam Kat 32 y.o. CHIEF COMPLAINT Chief Complaint Patient presents with Cholelithiasis CHOLELITHIASIS, [facility] 04/11/23, STILL HAVING PAIN Anam Kat is a 32-year-old male who presents to my office with complaints of pain nausea and vomiting every morning which began the middle of last month. He has been to the [facility] Emergency room twice. Sleeping helps with the pain. He has occasional chills but denies any fever. He has a past history of HIV and takes medication for this and sees Dr. Kelly at the [facility]. He is scheduled to see them on the . He has a history of an anorectal fistula taking care of by Dr. Naylor in 2011. 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 He does a lot a lifting twisting and turning. They do not have any light duty work. Gallbladder ultrasound at the [facility] on 04/11/2023 demonstrated cholelithiasis. MEDICATION Current Outpatient Medications: jhecpcgxe-dnqjptnh-bgbtmdj ala (BIKTARVY) 50-200-25 mg per tablet, Take 1 tablet by mouth in the morning., Disp: , Rfl: pantoprazole (PROTONIX) 40 mg EC tablet, Take 1 tablet (40 mg total) by mouth in the morning., Disp: , Rfl: HYDROcodone-acetaminophen (NORCO) 5-325 mg per tablet, Take 1 tablet by mouth every 6 (six) hours as needed for pain for up to 5 days. Max Daily Amount: 4 tablets, Disp: 6 tablet, Rfl: 0 ondansetron (ZOFRAN) 4 mg tablet, Take 1 tablet (4 mg total) by mouth every 8 (eight) hours as needed for nausea or vomiting., Disp: 12 tablet, Rfl: 0 ALLERGY No Known Allergies MEDICAL HISTORY Past Medical History: Diagnosis Date HIV disease ([facility]) Shingles Shingles SURGICAL HISTORY Past Surgical History: Procedure Laterality Date ABSCESS DRAINAGE 2011 Rectal abscess ANUS SURGERY CIRCUMCISION DENTAL SURGERY WISDOM TOOTH EXTRACTION bottom teeth SOCIAL HISTORY Social History Socioeconomic History Marital status: Spouse name: Not on file Number of children: Not on file Years of education: Not on file Highest education level: Not on file Occupational History Not on file Tobacco Use Smoking status: Every Day Packs/day: 0.25 Years: 11.00 Additional pack years: 0.00 Total pack years: 2.75 Types: Cigarettes, Vaping/E-cigarettes Smokeless tobacco: Never Vaping Use Vaping Use: Every day Substance and Sexual Activity Alcohol use: Yes Comment: Occasionally Drug use: Yes Types: Marijuana Comment: medical Sexual activity: Yes Partners: Male Other Topics Concern Not on file Social History Narrative Not on file Social Determinants of Health Financial Resource Strain: Not on file Food Insecurity: No Food Insecurity (04/11/2023) Hunger Screening Food Insecurity - Worry: Never True Food Insecurity - Inability: Never True Transportation Needs: Not on file Physical Activity: Not on file Stress: Not on file Social Connections: Not on file Interpersonal Safety: Not on file FAMILY HISTORY Family History Problem Relation Age of Onset Emphysema Maternal Grandmother Cancer Maternal Grandfather lung Heart disease Paternal Grandfather No Known Problems Mother No Known Problems Father No Known Problems Sister No Known Problems Brother No Known Problems Sister No Known Problems Brother REVIEW OF SYSTEMS: Constitutional: Denies fevers, denies recent illnesses. Eyes: Denies any vision changes. ENT: Denies any throat pain. Neck: Denies any neck pain. Cardiovascular denies chest pain. Denies palpitations. Respiratory: Denies shortness of breath, denies cough, denies history of asthma or any other pulmonary illnesses. Gastrointestinal: See chief complaint Genitourinary negative for dysuria hematuria urinary frequency or urgency. Musculoskeletal: Negative for extremity pains or joint discomfort. Neurologic: No change in sensation or paresthesias or history of seizure disorder skin: No rashes. Hematologic: Positive HIV; No anemia. No purpura. No petechiae and no prolonged or excessive bleeding Allergic and immunologic: No pruritus. No swelling. Endocrine: No unexplained weight loss. No polydipsia. No polyuria. No polyphagia. PHYSICAL EXAM Constitutional: He is oriented to person, place, and time. Vital signs are normal. He appears well-developed and well-nourished. HEENT: Head: Normocephalic and atraumatic. Eyes: Conjunctivae, EOM and lids are normal. Neck: Trachea normal. Neck supple. No thyroid mass present. Cardiovascular: Normal rate and regular rhythm. Pulmonary/Chest: Effort normal and breath sounds normal. Abdominal: Soft. Normal appearance. He exhibits no distension and no mass. There is no hepatosplenomegaly or splenomegaly. There is positive Beckett's sign. No hernia. Neurological: He is alert and oriented to person, place, and time. Skin: Skin is warm, dry and intact. Psychiatric: He has a normal mood and affect. His speech is normal and behavior is normal. Cognition and memory are normal. IMPRESSION 1. Chronic versus acute cholecystitis with cholelithiasis by ultrasound at the [facility] on 04/11/2023 2. History of HIV 3. History of vaping ASSESSMENT & PLAN Robotic/Laparoscopic cholecystectomy with possible open cholecystectomy. I discussed the risks, benefits, and alternatives to surgery, which may include infection, bleeding, bile duct injury, intestinal injury, blood clots in legs or lungs, pneumonia, heart attack, and/or . Patient voices understanding and wishes to proceed. Recovery 4 weeks no lifting greater than 5 lb. Evaluation included: Preparing to see the patient (e.g., review of tests) Obtaining and/or reviewing separately obtained history Performing a medically appropriate examination and/or evaluation Counseling and educating the patient/family/caregiver Referring and communicating with other health district manager primary care sales Calculus of gallbladder with chronic cholecystitis without obstruction [K80.10] Payam Salguero DO This note was created with the assistance of a speech recognition program. While intending to generate a timely document that accurately reflects the content of the visit, no guarantee can be provided that every grammatical or spelling mistake has been or will be identified or corrected. Thank you for your understanding. documented in this encounter [facility] Instructions 05-03-2023 Patient Instructions Note Date & Type Note Facility 05-03-2023 Instructions Payam Salguero DO - 05/03/2023 1:15 PM EST Are You Ready To Kick The Habit? Free Tobacco Cessation Resources [facility] Services [facility] provide all employees with free tobacco cessation services that include: Counseling to understand nicotine addiction Education about medications that can help you successfully quit Assistance with developing a plan to quit Call to set up an individual appointment or find out when group classes will be held: [facility]: [phone] [facility]: [phone] [facility]: [phone] [facility]: [phone] Quit Smoking Action Plan and Resources [facility] offers an eight-week, online smoking cessation plan to all [facility] employees, regardless of whether [employer] is your medical insurance provider. Go to www.[employer]edica.org/employeewellness and click the Health Risk Assessment and Resources link to get started. In the [employer] menu, click Action Plans instead of Health Risk Assessment to access the Quit Smoking Action Plan. Additional smoking cessation resources are also available to all [facility] employees on the [employer] web page at www.boosk/noahi ng. [place] Tobacco Cessation Program If [facility] is your medical insurance provider, there are more free resources available to you, including: No copays or deductibles on local tobacco cessation counseling services to help you quit Prescription assistance for tobacco cessation medications to help you quit For details about the tobacco cessation program available to [employer] members, go to www.[employer] (Search: Tobacco Cessation Program). [place] Tobacco Quit Line 2-129-JMRX-NOW ( ) is a toll-free, telephonic service that helps [place] residents quit smoking and using tobacco. It is staffed by experts who tailor a quit plan for you and provide you with advice. [place] Tobacco Quit Line 4-529-CGFO-NOW ( ) is a toll-free, telephonic service that helps [place] residents quit smoking and using tobacco. It is staffed by experts who tailor a quit plan for you and provide you with advice. Two weeks of nicotine replacement therapy may be provided at no charge, if needed. Additional Resources These national organizations also offer free information and resources to help you quit tobacco: [place] [employer]--www.cancer.org/healthy/staya wayfromtobacco [place] [employer]--www.heart.org (Search: Quit Smoking) Centers for Disease Control and Prevention--www.cdc.gov/tobacco [place] [employer] Association--www.lungusa.org documented in this encounter [facility] Progress note 11-25-2022 Note Date & Type Note Facility 11-25-2022 Note Subjective Patient ID: Anam Kat is a 32 y.o. male who presents for Consult (Anam Kat is here for a new patient consultation for Anogenital warts in male; referred by Farzana Kelly. /). Patient states that the warts have been present for around 6 months to a year. He denies any pain or bleeding. He states he has normal bowel function. He denies any other acute issues. His medical record was reviewed and he is due to have some of his normal labs which I have encouraged him to have done today. I explained to him if his viral load is high we will wait to do the operation once he is undetectable. Review of Systems Constitutional: Negative. HENT: Negative. Eyes: Negative. Respiratory: Negative. Cardiovascular: Negative. Gastrointestinal: Negative. Endocrine: Negative. Genitourinary: Negative. Musculoskeletal: Negative. Allergic/Immunologic: Negative. Neurological: Negative. Hematological: Negative. Psychiatric/Behavioral: Negative. Objective Visit Vitals BP 137/87 (BP Location: Left arm, Patient Position: Sitting, BP Cuff Size: Adult) Pulse 103 Physical Exam Constitutional: Appearance: Normal appearance. HENT: Head: Normocephalic and atraumatic. Nose: Nose normal. Cardiovascular: Rate and Rhythm: Normal rate. Pulmonary: Effort: Pulmonary effort is normal. Abdominal: General: Abdomen is flat. Palpations: Abdomen is soft. Genitourinary: Comments: Carpeting anal warts. Musculoskeletal: General: Normal range of motion. Cervical back: Normal range of motion. Skin: General: Skin is warm. Neurological: General: No focal deficit present. Mental Status: He is alert and oriented to person, place, and time. Psychiatric: Mood and Affect: Mood normal. Behavior: Behavior normal. Thought Content: Thought content normal. Judgment: Judgment normal. Assessment/Plan Diagnoses and all orders for this visit: Anal warts - imiquimod (Aldara) 5 % cream; Apply 1 packet topically 3 (three) times a week. Will start ointment and if not better will do fulgration in the OR. No diagnosis found. No orders of the defined types were placed in this encounter. No results found for this or any previous visit (from the past 36 hour(s)). No follow-ups on file. [facility] Progress note 11-08-2022 Note Date & Type Note Facility 11-08-2022 Note [facility] met with pt on MCM and patient discussed social determinants of health and program targets, below as follows: Medication: The patient reports adherence to this regimen Insurance: Private/[employer] Housing/Utilities: Patient reports secure housing. Patient able to afford utilities/does not have utility bills. Transportation: Patient has access to transport via own vehicle. Food: Patient reports food security, no assistance needed. Mental Health: Patient reports no mental health concerns. Prevention for Positives: [facility] reviewed Prevention for Positives information with patient., Patient understands U=U., [facility] reviewed additional STI information. Social Support: Patient reports positive social support. Eligbility: Patient meets program eligibility., 6-month attestation submitted. [facility] updated PT's Care Plan, Acuity Scale Assessment, and SDOH Targets appropriately. [facility] will continue to coordinate with PT and providers as needed. Additional Needs: Additional Appointment Notes: [facility] Progress note 11-07-2022 Note Date & Type Note Facility 11-07-2022 Note Subjective Anam Kat is a 32 y.o. male who presents to the Infectious Disease clinic for follow-up of HIV infection. He is feeling unchanged since his last visit. Patient reports taking Biktarvy and is tolerating the medication well. Patient states that he has not missed any doses in the last month. Patient has complaints of abdominal and rectal pain for the last few months. Patient denies fever, shortness of breath, chest pain, nausea or rash at this time. Review of Systems Constitutional: Negative. HENT: Negative. Eyes: Negative. Respiratory: Negative. Cardiovascular: Negative. Gastrointestinal: Positive for abdominal pain and rectal pain. Endocrine: Negative. Genitourinary: Negative. Musculoskeletal: Negative. Skin: Negative. Allergic/Immunologic: Negative. Neurological: Negative. Hematological: Negative. Psychiatric/Behavioral: Negative. Objective Physical Exam HENT: Head: Normocephalic. Nose: Nose normal. Mouth/Throat: Mouth: Mucous membranes are moist. Eyes: Pupils: Pupils are equal, round, and reactive to light. Cardiovascular: Rate and Rhythm: Normal rate and regular rhythm. Pulses: Normal pulses. Heart sounds: Normal heart sounds. Pulmonary: Effort: Pulmonary effort is normal. Breath sounds: Normal breath sounds. Abdominal: General: Bowel sounds are normal. Palpations: Abdomen is soft. There is mass (anal warts). Musculoskeletal: General: Normal range of motion. Cervical back: Normal range of motion and neck supple. Skin: General: Skin is warm and dry. Capillary Refill: Capillary refill takes less than 2 seconds. Neurological: Mental Status: He is alert and oriented to person, place, and time. Psychiatric: Mood and Affect: Mood normal. Laboratory VL: <30 on 09/13/21 CD4: 256/27.50% on 09/13/21 RPR: NR on 09/13/21 Hep A: none Hep B: 51.52 on 01/23/20 Hep C: NR on 03/23/20 TB: none Genotype: none Prevention for positives: discussed Assessment/Plan Patient will continue Biktarvy and will get labs drawn today. Patient will see colorectal surgeon for warts. Patient will RTC in six months. [facility] Progress note 05-05-2022 Note Date & Type Note Facility 05-05-2022 Note Subjective Anam Kat is a 31 y.o. male who presents to the Infectious Disease clinic for follow-up of HIV infection. He is feeling unchanged since his last visit. Patient reports taking Biktarvy and is tolerating the medication well. Patient states that he has not missed any doses in the last month. Patient states that he had Influenza A two weeks ago. He states that he still has a cough but it is getting better. Patient has continued complaints of diarrhea. He states that he never saw GI. Patient denies fever, shortness of breath, chest pain, nausea or rash at this time. Review of Systems Constitutional: Negative. HENT: Negative. Eyes: Negative. Respiratory: Positive for cough. Cardiovascular: Negative. Gastrointestinal: Positive for diarrhea. Endocrine: Negative. Genitourinary: Negative. Musculoskeletal: Negative. Skin: Negative. Allergic/Immunologic: Negative. Neurological: Negative. Hematological: Negative. Psychiatric/Behavioral: Negative. Objective Physical Exam HENT: Head: Normocephalic and atraumatic. Nose: Nose normal. Mouth/Throat: Mouth: Mucous membranes are moist. Eyes: Pupils: Pupils are equal, round, and reactive to light. Cardiovascular: Rate and Rhythm: Normal rate and regular rhythm. Pulses: Normal pulses. Heart sounds: Normal heart sounds. Pulmonary: Effort: Pulmonary effort is normal. Breath sounds: Normal breath sounds. Abdominal: General: Bowel sounds are normal. Palpations: Abdomen is soft. Musculoskeletal: General: Normal range of motion. Cervical back: Normal range of motion and neck supple. Skin: General: Skin is warm and dry. Capillary Refill: Capillary refill takes less than 2 seconds. Neurological: Mental Status: He is alert and oriented to person, place, and time. Psychiatric: Mood and Affect: Mood normal. Laboratory VL: <30 on 09/13/21 CD4: 256/27.50% on 09/13/21 RPR: NR on 09/13/21 Hep A: none Hep B: 51.52 on 01/23/20 Hep C: NR on 03/23/20 TB: none Genotype: none Assessment/Plan Patient will continue Biktarvy and will get labs drawn today. He will bring in stool specimen. He will call GI and get scheduled. Patient will RTC in six months. [facility] Evaluation note Note Date & Type Note Facility Evaluation note Diagnosis Calculus of gallbladder with chronic cholecystitis without obstruction- Primary History of HIV infection ([facility] [facility] documented in this encounter [facility] Summary Purpose Family History No Family History Records FoundNo Family History Records FoundNo Family History Records Found Advance Directives No Advanced Directives Records FoundNo Advanced Directives Records FoundNo Advanced Directives Records Found Reason for Referral Specialty Diagnoses / Procedures Referred By Sharda t Referred To Contact Diagnoses Calculus of gallbladder with chronic cholecystitis without obstruction Procedures Unlisted Non-[facility] Procedure Payam Salguero DO [address] [place] [address] Referral ID Status Reason Start Date Expiration Date V isits Requested Visits Authorized [id number] Pending Review 05/03/2023 05/02/2024 1 1 Additional Source Comments (unrecognized sect ion and content) No Status Records FoundNo Status Records FoundNo Status Records Found INFORMATION SOURCE (unrecogn ized section and content) DATE CREATED AUTHOR 06/12/2020 [facility] DATE CREATED AUTHOR AUTHOR'S ORGANIZ ATION 04/27/[address] [facility] DATE CREATED AUTHOR AUTHOR'S ORGANIZ ATION 11/29/2022 [facility] Reason for Visit (unrecogniz ed section and content) Reason Comments Cholelithiasis CHOLELITHIASIS, [facility] 04/11/23, STILL HAVING PAIN Care Teams (unrecognized sec tion and content) [employer] Relationship Specialty Start Date End Date Desire Jenkins DO [address] [id number] PCP - General Family Medicine 04/11/23 FOR RECORDS PERTAINING TO PATIENTS WHO ARE OR HAVE BEEN ENROLLED IN A CHEMICAL DEPENDENCY/SUBSTANCEABUSE PROGRAM, SOME INFORMATION MAY BE OMITTED. This clinical summary was aggregated from multiple sources. Caution should be exercised in using it in the provision of clinical care. This summary normalizes information from multiple sources, and as a consequence, information in this document may materially change the coding, format and clinical context of patient data. In addition, data may be omitted in some cases. CLINICAL DECISIONS SHOULD BE BASED ON THE PRIMARY CLINICAL RECORDS. [facility] provides no warranty or guarantee of the accuracy or completeness of information in this document.
--- NOTE | 2023-05-04 09:37 | XR_ITS ---
The [address] [address] Patient Name: SHAHLA DOBBS MRN: [id number] date: 1990 Sex: M [facility] Accession/Order Number: [id number] Exam Date: 05/04/2023 09:48 Report Date: 05/04/2023 10:04 At the request of: EMIR HIGGINS Procedure: XR chest 2V EXAM: XR chest 2V HISTORY: Preop exam COMPARISON: None. TECHNIQUE: PA and lateral views of the chest. FINDINGS: The cardiomediastinal silhouette is normal. No focal consolidation is identified. There is no pneumothorax. No pleural effusion is noted. The osseous structures are intact. XR/XR chest 2V IMPRESSION: No acute cardiopulmonary process. Electronically authenticated by: JOSÉ MIGUEL SULLIVAN Date: 05/04/2023 10:04
[2023-05-04 09:48] LABS: Basophils Percent Auto 0.8 % (0.2-2.0); Eosinophils Absolute Auto 0.2 10^3/uL (0.0-0.7); Eosinophils Percent Auto 4.5 % (0.9-7.0); Hematocrit 42.7 % (42.0-54.0); Hemoglobin 14.8 g/dL (14.0-18.0); Immature Granulocytes Abs Auto 0.02 10^3/uL (0.00-0.03); Immature Granulocytes Pct Auto 0.4 % (0.0-0.5); Lymphocytes Absolute Auto 1.4 10^3/uL (1.2-3.8); Lymphocytes Percent Auto 26.4 % (20.5-60.0); Mean Corpuscular HGB Conc 34.7 g/dL (29.9-35.2); Mean Corpuscular Hemoglobin 30.8 pg (25.9-34.0); Mean Platelet Volume 8.5 fL (9.5-13.5); Monocytes Absolute Auto 0.4 10^3/uL (0.3-0.8); Monocytes Percent Auto 6.8 % (1.7-12.0); Neutrophils Absolute Auto 3.2 10^3/uL (1.4-6.5); Neutrophils Percent Auto 61.1 % (43.0-75.0); Platelet Count 299 10^3/uL (150-450); Red Cell Distribution Width 12.2 % (11.0-15.0); White Blood Count 5.2 10^3/uL (4.0-11.0)
[2023-05-04 11:01] LABS: Alanine Aminotransferase 31 U/L (16-63); Albumin Globulin Ratio 1.2; Albumin Level 4.2 g/dL (3.4-5.0); Alkaline Phosphatase 77 U/L (46-116); Anion Gap 10.6; Aspartate Amino Transferase 14 U/L (15-37); BUN Creatinine Ratio 8.4; Bilirubin Total 0.5 mg/dL (0.2-1.0); Calcium 9.3 mg/dL (8.5-10.1); Carbon Dioxide 30.5 mmol/L (21.0-32.0); Chloride 101 mmol/L (98-107); Estimated GFR (African America >60 (>=60); Estimated GFR (Non-African Ame >60 (>=60); Globulin 3.4 g/dL; Glucose 87 mg/dL (74-106); Potassium 4.1 mmol/L (3.5-5.1); Sodium 138 mmol/L (136-145); Total Protein 7.6 g/dL (6.4-8.2)
== END 2023-05-04 09:08 | disposition home or self-care (01) ==
LOC: PST 09:08
PROVIDERS: PCP Family Medicine; Visit Provider Surgery
DX: K80.10 Calculus of gallbladder with chronic cholecystitis without obstruction (principal)
CPT/HCPCS: 71046; 80053; 83690; 85025

== ENCOUNTER 2023-05-05 06:32 | Day surgery (SDC) | payer BC, SELFPAY ==
[2023-05-04 09:27] VITALS: BP 134/86; PULSE 87; RESP 16; TEMP 36.6; O2SAT 98; BMI 24.3
[2023-05-05] VITALS (14 sets, daily range): BP systolic 133–178; BP diastolic 80–103; PULSE 59–87; RESP 10–22; TEMP 36.6–36.7; O2SAT 92–100
--- OUTSIDE RECORDS SUMMARY | 2023-05-05 06:34 | XMS_ITS | CCD ---
Author Name Unknown Address [address] [facility] [address] [place] [id number] Organization [facility] Care Team Providers Care [employer] Name Role Phone DR SAMSON CORONEL Admitting Unavailable DR SAMSON CORONEL Attending Unavailable [facility] Primary Care Unava DR SAMSON Blevins Consulting Unavailable FARZANA KELLY Attending Unavailable NKECHI RO Attending Unavailable FARZANA KELLY Attending Unavailable Desire Jenkins DO Primary Care Provider [phone] Medications Current Medications Medication Drug Class(es) Dates [...] 05-05-2022 Chronic Other aftercare (2 sources) Other intermediate frame tender (current) drug therapy; Translations: [Other intermediate frame tender (current) drug therapy] Onset: 11-25-2022 Episodic Other [...] Basophils (Bld) [#/Vol] 0.03 10*3/uL Normal 0.00-0.[address] [facility] Comment on above: Performed By: #### L [id number] ####[facility] (BEAKER)[address] [place] [address] Basophils/100 WBC (Bld) 0.6 % Normal 0.0-1.[address] [facility] Comment on above: Performed By: #### L [id number] ####[facility] ([facility]AKER)[address] [place] [address] Eosinophils (Bld) [#/Vol] 0.15 10*3/uL Normal 0.00-0.[address] [facility] Comment on above: Performed By: #### L [id number] ####[facility] (BEAKER)[address] [place] [address] Eosinophils/100 WBC (Bld) 3.2 % Normal 0.0-6.[address] [facility] Comment on above: Performed By: #### L [id number] ####[facility] ([facility])[address] [place] [address] Erythrocyte distribution width (RBC) [Ratio] 12.7 % Normal 11.5-15.[address] [facility] Comment on above: Performed By: #### L [id number] ####[facility] ([facility])[address] [place] [address] ERYTHROCYTE MEAN CORPUSCULAR HEMOGLOBIN CONCENTRATION (G/DL) BY AUTOMATED 34.6 g/dL Normal 32.0-35.0 [facility] Comment on above: Performed By: #### L [id number] ####[facility] ([facility])[address] [place] [address] Hematocrit (Bld) [Volume fraction] 41.9 % Normal 39.0-55.[address] [facility] Comment on above: Performed By: #### L [id number] ####[facility] (BEAKER)[address] [place] [address] Hemoglobin (Bld) [Mass/Vol] 14.5 g/dL Normal 13.0-17.[address] [facility] Comment on above: Performed By: #### L [id number] ####[facility] (BEAKER)[address] [place] [address] Immature granulocytes (Bld) [#/Vol] 0.01 10*3/uL Normal 0.00-0.[address] [facility] Comment on above: Performed By: #### L [id number] ####[facility] (BEAKER)[address] [place] [address] Immature granulocytes/100 WBC (Bld) 0.2 % Normal 0.0-1.[address] [facility] Comment on above: Performed By: #### L [id number] ####[facility] (BEAKER)[address] [place] [address] Lymphocytes (Bld) [#/Vol] 1.07 10*3/uL Low 1.20-4.[address] [facility] Comment on above: Performed By: #### L [id number] ####[facility] (BEAKER)[address] [place] [address] Lymphocytes/100 WBC (Bld) 22.9 % Normal 20.0-45.[address] [facility] Comment on above: Performed By: #### L [id number] ####[facility] (BEAKER)[address] [place] [address] MCH (RBC) [Entitic mass] 31.2 pg Normal 27.0-33.[address] [facility] Comment on above: Performed By: #### L [id number] ####[facility] (BEAKER)[address] [place] [address] MCV (RBC) [Entitic vol] 90.1 fL Normal 82.0-98.[address] [facility] Comment on above: Performed By: #### L [id number] ####[facility] (BEAKER)[address] [place] [address] Monocytes (Bld) [#/Vol] 0.29 10*3/uL Normal 0.10-1.[address] [facility] Comment on above: Performed By: #### L [id number] ####[facility] (BEAKER)[address] [place] [address] Monocytes/100 WBC (Bld) 6.2 % Normal 5.0-12.[address] [facility] Comment on above: Performed By: #### L [id number] ####[facility] (BEAKER)[address] [place] [address] Neutrophils (Bld) [#/Vol] 3.13 10*3/uL Normal 1.60-7.[address] [facility] Comment on above: Performed By: #### L [id number] ####[facility] ([facility])[address] [place] [address] Neutrophils/100 WBC (Bld) 66.9 % Normal 40.0-72.[address] [facility] Comment on above: Performed By: #### L [id number] ####[facility] ([facility])[address] [place] [address] NRBC (PER 100 WBCS) BY AUTOMATED COUNT 0.0 % Normal [address] [facility] Comment on above: Performed By: #### L [id number] ####[facility] ([facility])[address] [place] [address] PLATELETS (10*3/UL) IN BLOOD AUTOMATED COUNT 312 10*3/uL Normal 150-[address] [facility] Comment on above: Performed By: #### L [id number] ####[facility] ([facility])[address] [place] [address] RBC (Bld) [#/Vol] 4.65 10*6/uL Normal 4.20-5.70 [facility] Comment on above: Performed By: #### L [id number] ####[facility] ([facility])[address] [place] [address] WBC (Bld) [#/Vol] 4.68 10*3/uL Normal 4.00-10.60 [facility] Comment on above: Performed By: #### L [id number] ####[facility] ([facility])[address] [place] [address] COMPREHENSIVE METABOLIC PANE Thierry 11-25-2022 Albumin [Mass/Vol] 5.0 g/dL Normal 3.5-5.7 [facility] Comment on above: Performed By: #### L [id number] ####[facility] (BEAKER)[address] [place] [address] ALP [Catalytic activity/Vol] 64 U/L Normal 34-[address] [facility] Comment on above: Performed By: #### L [id number] ####[facility] (BEAKER)[address] [place] [address] ALT [Catalytic activity/Vol] 19 U/L Normal 7-[address] [facility] Comment on above: Performed By: #### L [id number] ####[facility] (BEAKER)[address] [place] [address] Anion gap [Moles/Vol] 9 mmol/L Normal 7-[address] [facility] Comment on above: Performed By: #### L [id number] ####[facility] (BEAKER)[address] [place] [address] AST [Catalytic activity/Vol] 15 U/L Normal 13-[address] [facility] Comment on above: Performed By: #### L [id number] ####[facility] (BEAKER)[address] [place] [address] Bilirubin [Mass/Vol] 0.3 mg/dL Normal 0.3-1.[address] [facility] Comment on above: Performed By: #### L [id number] ####[facility] (BEAKER)[address] [place] [address] Calcium [Mass/Vol] 9.2 mg/dL Normal 8.6-10.3 [facility] Comment on above: Performed By: #### L [id number] ####[facility] ([facility]ER)[address] [place] [address] Chloride [Moles/Vol] 105 mmol/L Normal 98-[address] [facility] Comment on above: Performed By: #### L [id number] ####[facility] ([facility]AKER)[address] [place] [address] CO2 [Moles/Vol] 29 mmol/L Normal 21-31 [facility] Comment on above: Performed By: #### L [id number] ####[facility] ([facility]AKER)[address] [place] [address] Creatinine [Mass/Vol] 0.83 mg/dL Normal 0.70-1.[address] [facility] Comment on above: Performed By: #### L [id number] ####[facility] ([facility])[address] [place] [address] GLOMERULAR FILTRATION RATE ML/MIN/1.73 SQ M.PREDICTED 118.5 mL/min/1.73m*2 Normal >60.[address] [facility] Comment on above: Result Comment: [facility]???s estimated glomerular filtration rate (eGFR) [...] of individuals. Performed By: #### L [id number] ####[facility] ([facility])[address] [place] [address] Glucose [Mass/Vol] 93 mg/dL Normal 70-100 [facility] Comment on above: Performed By: #### L [id number] ####[facility] ([facility])[address] [place] [address] Potassium [Moles/Vol] 3.8 mmol/L Normal 3.5-5.[address] [facility] Comment on above: Performed By: #### L [id number] ####[facility] ([facility])[address] [place] [address] Protein [Mass/Vol] 7.5 g/dL Normal 6.0-8.3 [facility] Comment on above: Performed By: #### L [id number] ####[facility] ([facility])[address] [place] [address] Sodium [Moles/Vol] 139 mmol/L Normal 136-145 [facility] Comment on above: Performed By: #### L [id number] ####[facility] ([facility])[address] [place] [address] Urea nitrogen [Mass/Vol] 10 mg/dL Normal 7-[address] [facility] Comment on above: Performed By: #### L [id number] ####[facility] ([facility])[address] [place] [address] UREA NITROGEN/CREATININE (MASS RATIO) IN SER/PLAS 12.[address] 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 Normal [facility] HEMOGLOBIN A1Con 11-25-2022 Glucose [Mass/Vol] 100 mg/dL Normal [facility] Comment on above: Performed By: #### L [id number] ####[facility] ([facility])[address] [place] [address] HbA1c (Bld) [Mass fraction] 5.1 % Normal 4.0-6.[address] [facility] Comment on above: Performed By: #### L [id number] ####[facility] ([facility])[address] [place] [address] HEPATITIS B SURFACE ANTIBODY QUANTon 11-25-2022 HEPATITIS B VIRUS SURFACE AB (MIU/ML) IN SERUM 56.37 mIU/mL Normal [facility] Comment on above: Result Comment: INTE RPRETATION: NONREACTIVE<8.00 mIU/mL INDETERMINATE8.00 - 12.00 mIU/mL REACTIVE>12 mIU/mL Performed By: #### L [id number] ####[facility] ([facility])[address] [place] [address] HEPATITIS C ANTIBODYon 11-25 HEPATITIS C VIRUS AB PRESENCE IN SERUM Non-Reactive Normal Nonreactive [facility] Comment on above: Performed By: #### L [id number] ####[facility] ([facility])[address] [place] [address] LIPID PANELon 11-25-2022 CHOL/HDL 3.7 mg/dL Normal [facility] Comment on above: Performed By: #### L [id number] ####[facility] ([facility])[address] [place] [address] Cholesterol [Mass/Vol] 198 mg/dL Normal 120-[address] [facility] Comment on above: Performed By: #### L [id number] ####[facility] ([facility])[address] [place] [address] Magnesium [Mass/Vol] 248 mg/dL High 40-[address] [facility] Comment on above: Result Comment: TRIG LYCERIDE REFERENCE RANGE: 20 YEARS AND OLDER CARDIOVASCULAR RISK LESS THAN 150 mg/dL LOW RISK 150 TO 199 mg/dL BORDERLINE RISK 200 mg/dL AND GREATER HIGH RISK Performed By: #### L [id number] ####[facility] ([facility])[address] [place] [address] Magnesium [Mass/Vol] 94 mg/dL Normal 0-[address] [facility] Comment on above: Performed By: #### L [id number] ####[facility] ([facility])[address] [place] [address] Magnesium [Mass/Vol] 54 mg/dL Normal 23-[address] [facility] Comment on above: Performed By: #### L [id number] ####[facility] ([facility])[address] [place] [address] NON HDL CHOL. (LDL+VLDL) [address] [facility] Comment on above: Performed By: #### L [id number] ####[facility] (BEAKER)[address] [place] [address] TOTAL VLDL-C 50 mg/dL High 0-40 [facility] Comment on above: Performed By: #### L [id number] ####[facility] ([facility])[address] [place] [address] Labon 11-25-2022 Lab [id number] Anam Kat 1990 M Date Provider Department Singer 11/25/2022 2247-[facility] OPD LAB RESOURCE [facility] OPD [facility] No family history on file Normal [facility] RPRon 11-25-2022 REAGIN AB PRESENCE IN SERUM BY RPR Non-Reactive Normal Nonreactive [facility] Comment on above: Performed By: #### L [id number] ####[facility] ([facility])[address] [place] [address] T CELL SUBSET ANALYSISon CD3 74.88 % Normal 65.00-90.[address] [facility] Comment on above: Performed By: #### L [id number] ####[facility] ([facility])[address] [place] [address] CD3 ABSOLUTE 803 cells/mm3 Normal 760-2130 [facility] Comment on above: Performed By: #### L [id number] ####[facility] ([facility])[address] [place] [address] CD4 28.70 % Low 40.00-70.[address] [facility] Comment on above: Performed By: #### L [id number] ####[facility] ([facility])[address] [place] [address] CD4 ABSOLUTE 308 cells/mm3 Low 430-1185 [facility] Comment on above: Performed By: #### L [id number] ####[facility] ([facility])[address] [place] [address] CD4:CD8 0.64 Low 1.00-4.[address] [facility] Comment on above: Performed By: #### L [id number] ####[facility] ([facility])[address] [place] [address] CD8 45.09 % High 15.00-40.[address] [facility] Comment on above: Performed By: #### L [id number] ####[facility] ([facility])[address] [place] [address] CD8 ABSOLUTE 483 cells/mm3 Normal 180-865 [facility] Comment on above: Performed By: #### L [id number] ####[facility] ([facility])[address] [place] [address] URINALYSISon 11-25-2022 BILIRUBIN, TOTAL PRESENCE IN URINE Negative Normal Negative [facility] Comment on above: Order Comment: Micro scopics not performed on urines with negative chemical reactions unless requested on original order. Performed By: #### L [id number] ####[facility] ([facility])[address] [place] [address] Clarity (U) Clear Normal Clear [facility] Comment on above: Order Comment: Micro scopics not performed on urines with negative chemical reactions unless requested on original order. Performed By: #### L [id number] ####[facility] ([facility])[address] [place] [address] Color (U) Yellow Normal Yellow [facility] Comment on above: Order Comment: Micro scopics not performed on urines with negative chemical reactions unless requested on original order. Performed By: #### L [id number] ####[facility] ([facility])[address] [place] [address] Glucose (U) [Mass/Vol] Negative Normal Negative [facility] Comment on above: Order Comment: Micro scopics not performed on urines with negative chemical reactions unless requested on original order. Performed By: #### L [id number] ####[facility] ([facility])[address] [place] [address] HEMOGLOBIN PRESENCE IN URINE Negative Normal Negative [facility] Comment on above: Order Comment: Micro scopics not performed on urines with negative chemical reactions unless requested on original order. Performed By: #### L [id number] ####[facility] ([facility])[address] [place] [address] Ketones Ql (U) Negative Normal Negative [facility] Comment on above: Order Comment: Micro scopics not performed on urines with negative chemical reactions unless requested on original order. Performed By: #### L [id number] ####[facility] ([facility])[address] [place] [address] LEUKOCYTE ESTERASE PRESENCE IN URINE BY TEST STRIP Negative Normal Negative [facility] Comment on above: Order Comment: Micro scopics not performed on urines with negative chemical reactions unless requested on original order. Performed By: #### L [id number] ####[facility] ([facility])[address] [place] [address] NITRITE PRESENCE IN URINE Negative Normal Negative [facility] Comment on above: Order Comment: Micro scopics not performed on urines with negative chemical reactions unless requested on original order. Performed By: #### L [id number] ####[facility] ([facility])[address] [place] [address] pH (U) 7.0 [pH] Normal 5.0-8.[address] [facility] Comment on above: Order Comment: Micro scopics not performed on urines with negative chemical reactions unless requested on original order. Performed By: #### L [id number] ####[facility] ([facility])[address] [place] [address] Protein (U) [Mass/Vol] Negative Normal Negative [facility] Comment on above: Order Comment: Micro scopics not performed on urines with negative chemical reactions unless requested on original order. Performed By: #### L [id number] ####[facility] ([facility])[address] [place] [address] Specific gravity (U) [Rel density] 1.014 Low 1.015-1.[address] [facility] Comment on above: Order Comment: Micro scopics not performed on urines with negative chemical reactions unless requested on original order. Performed By: #### L [id number] ####[facility] ([facility])[address] [place] [address] Refillon 11-21-2022 Refill [id number] Anam Kat 1990 M Date Provider Department Center 11/21/2022 FARZANA PHIPPS [facility] CARE Marce Heal No family history on file Reason for Visit and Comments: Med Refill [[id number]] [facility] 30on 11-08-2022 30 patient actively participated in the development of the care plan [facility] Office Visiton 11-07-2022 Follow-up visit [id number] Harmonua 1990 M Date Provider Department Center 11/07/2022 FARZANA PHIPPS C CARE Marce Heal No family history on file Level of Service:11928 [place] OFFICE/OUTPATIENT ESTABLISHED MOD MDM 30-39 MIN Reason for Visit and Comments: HIV Positive/AIDS [109] [facility] Refillon 09-27-2022 Refill [id number] Dana Katshua 1990 M Date Provider Department [place] 09/27/2022 FARZANA PHIPPS C CARE Amrce Heal No family history on file Reason for Visit and Comments: Med Refill [[id number]] [facility] Refillon 08-01-2022 Refill [id number] Dana Katshua 1990 M Date Provider Department Center 08/01/2022 FARZANA PHIPPS C CARE Marce Heal No family history on file Reason for Visit and Comments: Med Refill [[id number]] [facility] Refill [id number] Dana Katshua 1990 M Date Provider Department Center 08/01/2022 147-DE ANAYELI [facility] CARE Marce Heal No family history on file Reason for Visit and Comments: Med Refill [[id number]] [facility] Patient Outreachon Patient Outreach [id number] Dana Katshua 1990 M Date Provider Department Center 05/30/2022 3600-KILLIAN CAPPSA [facility] C[facility] Marce Heal No family history on file [facility] Office Visiton 05-05-2022 Follow-up visit [id number] Harmonshua 1990 M Date Provider Department Center 05/05/2022 FARZANA PHIPPS [facility] Marce Heal No family history on file Level of Service:38953 [place] OFFICE/OUTPATIENT ESTABLISHED MOD MDM 30-39 MIN Reason for Visit and Comments: HIV Positive/AIDS [109] lesion [Other] - Between buttocks, started a few months after shaving. No pain, discomfort, discharge or itching. Normal [facility] Refillon 05-05-2022 Refill [id number] Anam Kat 1990 M Date Provider Department Center 05/05/2022 FARZANA PHIPPS [facility] CARE Marce Heal No family history on file Reason for Visit and Comments: Med Refill [[id number]] Normal [facility] Covid-19 PCR (CVDTB)on 04-01 SARS-CoV-2 (COVID-19) RNA RINA+probe Ql (Unsp spec) Not detected Normal NOT DETECTED [facility] Comment on above: Result Comment: This test is not yet approved or cleared by the [place] FDA. When there are no FDA-approved or cleared tests available, and other criteria are met, FDA can make tests available under an emergency access mechanism called an Emergency Use Authorization (EUA). The EUA for this test is supported by the [place] of Health and Human Service's (HHS's) declaration [...] SARS-CoV-2. Performed By: #### C VDTBH #### [facility] [address] [place] [address] Dr. Jade Cline INFLUENZA A AND B AGon 04-25 INFLUBNEG SEE BELOW Normal [facility] Comment on above: Result Comment: Nega tive for Flu B protein antigen. Infection due to Flu B cannot be ruled out. Flu B antigen in the sample may be below the detection limit of the test. Performed By: #### I NFLUAB #### [facility] [address] [address] [address] Jade Cline INFLUENZA A AG Positive Abnormal NEGATIVE SEE COMMENT [facility] Comment on above: Performed By: #### I NFLUAB #### [facility] [address] [address] [address] Jade Cline INFLUENZA B AG Negative Normal NEGATIVE SEE COMMENT [facility] Comment on above: Performed By: #### I NFLUAB #### [facility] [address] [address] [address] Jade Cline INFLUPOSH SEE BELOW Normal [facility] Comment on above: Result Comment: NOTE : Live attenuated influenzae vaccine viruses can cause a positive result for a rapid influenza diagnostic test if administered up to 7 days prior to rapid testing. Performed By: #### I NFLUAB #### [facility] [address] [address] [address] Jade Cline INTERNAL CONTROLS Within Normal Limits Normal Wi thin Normal Limits [facility] Comment on above: Performed By: #### I NFLUAB #### [facility] [address] [address] [address] Jade Cline 36on 03-10-2022 36 Reminder call, left message./hr Normal [facility] Orders Onlyon 03-07-2022 Orders Only [id number] Anam Kat 1990 M Date Provider Department Center 03/07/2022 FARZANA PHIPPS [facility] CARE Marce Heal No family history on file Normal [facility] Coding Summaryon 05-22-2020 Coding Summary CODING DATE: 05/22/2020 [facility] STATUS: Home PAYOR: Medicaid HMO ADMIT DX: [...] Bill Bautista' Date Saved: 05/22/2020 01:02 pm [facility] Coding Summary CODING DATE: 05/22/2020 FINAL [facility] STATUS: Home PAYOR: Medicaid HMO ADMIT DX: [...] Bill Bautista' Date Saved: 05/22/2020 01:00 pm [facility] CT Spine Cervical w/o Contra daryl 05-18-2020 [...] Smith MD 05/18/20 3:44 pm Technologist: MARY [facility] ED Clinical Summaryon 2020 ED Clinical Summary [facility] - Emergency Department [address] [place] [address] ED Clinical Summary PERSON INFORMATION Name: ANAM KAT Age: 29 Years Sex: MALE : 1990 MRN: Acct#: Visit Reason: Neck pain; C/O NECK PAIN Arrival: 05/18/2020 14:25:22 Discharge: 05/18/2020 16:36:00 LOS: 000 02:11 Check In: 05/18/2020 14:25:22 Checkout:05/18/2020 16:36:00 Address: [address] [place] [address] [facility] [id number] PCP: Desire Jenkins DO PROVIDER INFORMATION Provider [...] medications for this and follows up with [facility]. Patient states he had contacted their [...] lifting at work as he works at [employer]. States he does all kinds of different [...] his gabapentin and was also taking some wmwj-nsl-ckawucf NSAID medications such as ibuprofen and he [...] Plan Diagnosis Neck pain on left side ([id number]-KH M54.2, Discharge, Medical) Plan Condition: Stable. Disposition: Discharged: Time 05/18/2020 16:28:00, to home. Prescriptions: [facility] Pharmacy: orphenadrine 100 mg oral tablet, extended release (Prescribe): 100 mg = 1 tab(s), PO, BID, for 7 day(s), 14 tab(s), 0 Refill(s). Patient was given the following educational materials: Cervical Radiculopathy, Iodx-nu-Njli, Cervical Radiculopathy, Hvit-yl-Ncpi, Cervical Radiculopathy, Qhgs-az-Vlfz. Follow up with: Desire Jenkins Within 3 [...] the next 7 days is sent to [facility] for you in [place]. Discontinue Flexeril until Norflex prescription is completed. [...] Location: PATIENT EDUCATION INFORMATION Instructions: Cervical Radiculopathy, Affa-pd-Ftof Follow-Up: With: Address: When: Desire Jenkins [address] [place] [address] [facility] (1) Within 3 to 5 days Comments: [...] the next 7 days is sent to [facility] for you in [place]. Discontinue Flexeril until Norflex prescription is completed. [...] er verbalizes understanding of instructions given Comment: [facility] ED Note - Physicianon 2020 ED Note [...] medications for this and follows up with [facility]. Patient states he had contacted their [...] lifting at work as he works at [employer]. States he does all kinds of different [...] his gabapentin and was also taking some mcyx-rxb-aiahdii NSAID medications such as ibuprofen and he states he also tried Excedrin this morning with minimal relief. States he has worsening pain when turning to the left. [facility] primary care provider had also prescribed to [...] Plan Diagnosis Neck pain on left side ([id number]-DT M54.2, Discharge, Medical) Plan Condition: Stable. Disposition: Discharged: Time 05/18/2020 16:28:00, to home. Prescriptions: [facility] Pharmacy: orphenadrine 100 mg oral tablet, extended release (Prescribe): 100 mg = 1 tab(s), PO, BID, for 7 day(s), 14 tab(s), 0 Refill(s). Patient was given the following educational materials: Cervical Radiculopathy, Qeos-le-Dtak, Cervical Radiculopathy, Evbt-nr-Qoiu, Cervical Radiculopathy, Ccsv-hx-Xdvr. Follow up with: Desire Jenkins Within 3 [...] the next 7 days is sent to [facility] pharmacy for you in [place]. Discontinue Flexeril until Norflex prescription is completed. [...] 16:33 EST] Abram Carrera PA-C 05/18/2020 16:38 [facility] pharmacy in [place] called in regards to the pt. State that they do not currently have orphenadrine, as it is on back order. I tried contacting the pt, and his emergency contact to try to get ahold of the pt, both rang busy. [Electronically Signed on: 05/18/2020 16:39 EST] Abram Carrera PA-C 16:43 I was able to get ahold of the pt, prescription sent to [facility] in [place], [place]. [Electronically Signed on: 05/18/2020 16:43 EST] Abram Carrera PA-C [facility] ED Patient Education Noteon 05-18-2020 ED Patient [...] tell your doctor. Managing pain ? Take opfk-szr-hjigmqt and prescription medicines only as told by [...] 04/05/2012 Document Revised: 03/08/2019 Document Reviewed: 03/08/2019 [employer] Patient Education ? 2019 [employer]. Normal [facility] ED Patient Summaryon 021 ED Patient Summary [facility] - Emergency Department [address] [place] [address] PATIENT DISCHARGE INSTRUCTIONS Patient Information Name: ANAM KAT Age: 29 Years Date of : 1990 Reason For Visit: Neck pain; C/O NECK PAIN Arrival Time: 05/18/2020 14:25:22 Primary Care Physician: Desire Jenkins DO Attending Physician: Payam Trevino DO Comment: Visit Diagnosis: Diagnoses This Visit Neck pain ([id number]) Neck pain on left side (M54.2) Prescription Information: If you have been given a prescription for narcotics, seek immediate medical attention if you have any difficulty breathing or any sudden status changes such as confusion and sleepiness. If you or anyone you know is experiencing suicidal thoughts, mental health, alcohol and/or drug addiction problems; contact the [facility] 21/11 Crisis Hotline -Text 4HWEO to 360508. If you received any narcotics, sedation, or [...] With: Address: When: Desire Jenkins [address] [place] [address] Business (1) Within 3 to 5 days [...] the next 7 days is sent to [facility] pharmacy for you in [place]. Discontinue Flexeril until Norflex prescription is completed. [...] and treatment you received today in the [facility] were for an urgent problem and are not intended as complete care. It is important for you to follow up with a doctor, nurse practitioner, or physician?s teaching assistant for ongoing care. If your symptoms [...] so we can reach you if necessary. [facility] Emergency Department has provided you with a complete list of medications post discharge. Please inform your foil operator/provider of your visit and for further instruction on these medications. Any specific questions regarding your chronic medications and dosages should be discussed with your primary care physician(s) and/or pharmacist. New Medications [address] [place], [place] [id number], [phone] orphenadrine (orphenadrine 100 mg oral tablet, extended [...] tell your doctor. Managing pain ? Take zwnj-npi-yczfysi and prescription medicines only as told by [...] 04/05/2012 Document Revised: 03/08/2019 Document Reviewed: 03/08/2019 [employer] Patient Education ? 2019 [employer] Viruses or Bacteria What?s got you [...] Disease Control and Prevention December 2013 Normal [facility] Vital Signs Date Time Vital Sign Value Performing Clinician Socrates[facility] spring 05-03-2023 13:23050 Body height 177.8 cm Payam Salguero DO Work Phone: [employer] 05-03-2023 13:23-0500 Body mass index (BMI) [Ratio] 22.96 kg/m2 Payam Salguero DO Work Phone: [employer] 05-03-2023 13:23-0500 Body weight 72.58 kg Payam Salguero DO Work Phone: [employer] Encounters Encounter Date Encounter Type Care Provider Facility Start: 05-03-2023 End: 05-03-2023 Office outpatient new 45 minutes Payam Salguero DO Work Phone: [facility] Comment on above: Calculus of gallblad romy with chronic cholecystitis without obstruction (Primary Dx); History of HIV infection ([facility]) Start: 11-25-2022 End: 11-25-2022 ambulatory NKECHIROSALIE RO [facility] Start: 11-07-2022 End: 11-07-2022 ambulatory FARZANA M ROBIN [facility] Start: 05-05-2022 End: 05-05-2022 ambulatory FARZANA KELLY [facility] Start: 04-25-2022 End: 04-25-[address] SAMSON CORONEL Facility: Plan of Treatment Date Care Activity Detail Author Start: 07-25-2031 DTaP,Tdap and Td Vaccines (7 - Td or Tdap) DTaP,Tdap and Td Vaccines (7 - Td or Tdap) [facility] Start: 05-03-2024 Adult BMI Screening Adult BMI Screen ing [facility] Start: 05-03-2024 Tobacco Screening Tobacco Screening [facility] Start: 05-05-2023 End: 05-02-2024 Unlisted [facility] Procedure Unlisted [facility] Procedure Procedures Routine Calculus of gallbladder with chronic cholecystitis without obstruction Expected: 05/05/2023, Expires: 05/02/2024 [facility] Comment on above: Expected: 05/05/2023 , Expires: 05/02/2024 Start: 05-05-2023 End: 05-05-2023 Patient encounter procedure 05/05/2023 7:30 AM EST Office Visit [facility] [address] [place] [id number] Payam Salguero DO [address] [id number] [facility] Start: 12-30-2022 Influenza vaccination Influenza Vacc ine [facility] Start: 2001 Depression Screening Depression Scre ening [facility] Start: 1990 Tobacco Counseling Tobacco Counselin g [facility] End: 05-02-2024 CBC panel - Blood by Automated count CBC without diff Lab Routine Calculus of gallbladder with chronic cholecystitis without obstruction 1 Occurrences starting 05/03/2023 until 05/02/2024 [facility] Work Phone: Comment on above: 1 Occurrences starti ng 05/03/2023 until 05/02/2024 End: 05-02-2024 Comprehensive metabolic 2000 panel - Serum or Plasma Comprehensive metabolic panel Lab Routine Calculus of gallbladder with chronic cholecystitis without obstruction 1 Occurrences starting 05/03/2023 until 05/02/2024 [facility] Comment on above: 1 Occurrences starti ng 05/03/2023 until 05/02/2024 End: 05-02-2024 Lipase [Enzymatic activity/volume] in Serum or Plasma Lipase Lab Routine Calculus of gallbladder with chronic cholecystitis without obstruction 1 Occurrences starting 05/03/2023 until 05/02/2024 [facility] on above: 1 Occurrences starti ng 05/03/2023 until 05/02/2024 Immunizations Immunization Date Immunization Notes Care Provider Fa cili 07-24-2021 tetanus toxoid, redu ebenezer diphtheria toxoid, and acellular pertussis vaccine, adsorbed Payam Salguero DO Work Phone: [facility] [employer] 01-30-2020 influenza virus vaccine, unspecified formulation Payam Salguero DO Work Phone: [facility] 01-23-2020 influenza, injectabl e, quadrivalent, preservative free Payam Salguero DO Work Phone: [facility] Payers Date Payer Category Payer Unknown [id number] 2022 Unknown ANDREY KIRKBS OUT OF STATE PPO/TRUST [id number] 2022-Present [phone] [address] [place] [address] [id number] 1990 Unknown [id number] 1960 Unknown [id number] Social History Date Type Detail Facility Start: 07-24-2022 [facility] History of tobacco use Cigarette Smoker [facility] History of tobacco use Tobacco U se Types Packs/Day Years Used Date Smoking Tobacco: Every Day Cigarettes 0.3 11 Vaping/E-cigarettes Smokeless Tobacco: Never [facility] Start: 06-10-2020 End: 07-24-2022 Cigarettes smoked current (pack per day) - Reported 0.3 [facility] Start: 07-24-2022 Tobacco use and exposure Smokeless tobacco non-user [facility] Start: 05-03-2023 Alcohol intake Current drinke r of alcohol (finding) [facility] Start: 06-10-2020 End: 05-03-2023 Tobacco use panel [facility] Housing Instability Unknown [facility] Start: 04-11-2019 Alcohol Comment Occasionally [facility] Start: 1990 Sex Assigned At Not on file [facility] History of Present illness Narrative 05-03-2023 Payam Salguero, DO - 05/03/2023 1:15 PM EST Note Date & Type Note Facility 05-03-2023 History of Present illness Narrative Images from the original note were not included. [facility] [address] [facility] [id number] CONSULT NOTE Anam Kat 32 y.o. CHIEF COMPLAINT Chief Complaint Patient presents with Cholelithiasis CHOLELITHIASIS, [facility] ER 04/11/23, STILL HAVING PAIN Anam Kat is a 32-year-old male who presents to my office with complaints of pain nausea and vomiting every morning which began the middle of last month. He has been to the [facility] Emergency room twice. Sleeping helps with the pain. He has occasional chills but denies any fever. He has a past history of HIV and takes medication for this and sees Dr. Kelly at the [facility]. He is scheduled to see them on the . He has a history of an anorectal fistula taking care of by Dr. Naylor in 2011. 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 He does a lot a lifting twisting and turning. They do not have any light duty work. Gallbladder ultrasound at the [facility] on 04/11/2023 demonstrated cholelithiasis. MEDICATION Current Outpatient Medications: uuyjndnyn-fpcluwje-qsuvloy ala (BIKTARVY) 50-200-25 mg per tablet, Take [...] Past Medical History: Diagnosis Date HIV disease ([facility]) Shingles Shingles SURGICAL HISTORY Past Surgical History: [...] cholecystitis with cholelithiasis by ultrasound at the [facility] on 04/11/2023 2. History of HIV 3. [...] patient/family/caregiver Referring and communicating with other health lawn caretaker Calculus of gallbladder with chronic cholecystitis without [...] for your understanding. documented in this encounter [facility] Instructions 05-03-2023 Patient Instructions Note Date & Type Note Facility 05-03-2023 Instructions Payam Salguero DO - 05/03/2023 1:15 PM EST Are You Ready To Kick The Habit? Free Tobacco Cessation Resources [facility] Tobacco Treatment Center Services [facility] Tobacco Treatment Centers provide all employees with free tobacco cessation services that include: Counseling to understand nicotine addiction Education about medications that can help you successfully quit Assistance with developing a plan to quit Call to set up an individual appointment or find out when group classes will be held: [facility]: [phone] [facility]: [phone] [facility]: [phone] [facility]: [phone] Quit Smoking Action Plan and Resources [facility] offers an eight-week, online smoking cessation plan to all [facility] employees, regardless of whether [employer] is your medical insurance provider. Go to www.[employer].org/employeewellness and click the Health Risk Assessment and Resources link to get started. In the [employer] menu, click Action Plans instead of Health Risk Assessment to access the Quit Smoking Action Plan. Additional smoking cessation resources are also available to all [facility] employees on the [employer] web page at www.[employer]/noahi ng. [place] Tobacco Cessation Program If [place] is your medical insurance provider, there are more free resources available to you, including: No copays or deductibles on local tobacco cessation counseling services to help you quit Prescription assistance for tobacco cessation medications to help you quit For details about the tobacco cessation program available to [employer] members, go to www.[employer] (Search: Tobacco Cessation Program). [place] Tobacco Quit Line 2-230-VSQR-NOW ( ) is a toll-free, telephonic service that helps [place] residents quit smoking and using tobacco. It is staffed by experts who tailor a quit plan for you and provide you with advice. [place] Tobacco Quit Line 7-620-PXIU-NOW ( ) is a toll-free, telephonic service that helps [place] residents quit smoking and using tobacco. It is staffed by experts who tailor a quit plan for you and provide you with advice. Two weeks of nicotine replacement therapy may be provided at no charge, if needed. Additional Resources These national organizations also offer free information and resources to help you quit tobacco: [place] [employer]--www.cancer.org/healthy/staya wayfromtobacco [place] [employer]--www.heart.org (Search: Quit Smoking) Centers for Disease Control and Prevention--www.cdc.gov/tobacco [place] Lung Association--www.lungusa.org documented in this encounter [facility] Progress note 11-25-2022 Note Date & [...] past 36 hour(s)). No follow-ups on file. [facility] Progress note 11-08-2022 Note Date & Type Note Facility 11-08-2022 Note [facility] met with pt on MCM and [...] no mental health concerns. Prevention for Positives: [facility] reviewed Prevention for Positives information with patient., Patient understands U=U., [facility] reviewed additional STI information. Social Support: Patient reports positive social support. Eligbility: Patient meets program eligibility., 6-month attestation submitted. [facility] updated PT's Care Plan, Acuity Scale Assessment, and SDOH Targets appropriately. [facility] will continue to coordinate with PT and providers as needed. Additional Needs: Additional Appointment Notes: [facility] Progress note 11-07-2022 Note Date [...] warts. Patient will RTC in six months. [facility] Progress note 05-05-2022 Note Date [...] scheduled. Patient will RTC in six months. [facility] Evaluation note Note Date & Type Note Facility Evaluation note Diagnosis Calculus of gallbladder with chronic cholecystitis without obstruction- Primary History of HIV infection ([facility]) documented in this encounter [facility] [...] Unlisted [facility] Procedure Payam Salguero DO [address] [place] [address] Referral ID Status Reason Start Date Expiration Date V isits Requested Visits Authorized [id number] Pending Review 05/03/2023 05/02/2024 1 1 Additional Source Comments (unrecognized sect ion and content) No Status Records FoundNo Status Records FoundNo Status Records Found INFORMATION SOURCE (unrecogn ized section and content) DATE CREATED AUTHOR 06/12/2020 [facility] DATE CREATED AUTHOR AUTHOR'S ORGANIZ ATION 04/27/2022 [facility] DATE CREATED AUTHOR AUTHOR'S ORGANIZ ATION 11/29/2022 [facility] Reason for Visit (unrecogniz ed section and content) Reason Comments Cholelithiasis CHOLELITHIASIS, [facility] ER 04/11/23, STILL HAVING PAIN Care Teams (unrecognized sec tion and content) [employer] Relationship Specialty Start Date End Date Desire Jenkins DO [address] [id number] PCP - General Family Medicine 04/11/23 FOR [...] BE BASED ON THE PRIMARY CLINICAL RECORDS. [facility]. provides no warranty or guarantee of the accuracy or completeness of information in this document.
[2023-05-05] MEDS: LACTATED RINGER'S SOLUTION 1,000 ML 50 ML IV (07:09)
[2023-05-05] MEDS: INDOCYANINE GREEN 25 MG VIAL INJ (07:14)
--- NOTE | 2023-05-05 07:17 | PM.GSPRC ---
Date of procedure: 05/05/23 Indications for Procedure: cholecystitis with cholelithasis Pre-op diagnosis: cholecystitis with cholelithiasis Post-op diagnosis: same as pre-op Procedure: robotic cholecystectomy withFANG Guerra Findings: cholecystitis with cholelithiasis Anesthesia: KRYSTAL Surgeon: Payam Salguero Procedure Summary: After again explaining the risks and benefits of the procedure in the preoperative care unit consent was obtained. ?The patient was taken back to the operative room and placed on the operative room table. General endotracheal anesthesia was induced and preoperative antibiotics were given. ?Appropriate time-out was performed. ?Right arm was?tucked at the side. ?Then the bed was positioned appropriately. ?The abdomen was prepped and draped in normal sterile fashion. A periumbilical incision was made. ?Dissection was carried down to the fascia. ?Fascia was elevated with leny clamps and entered sharply. A 12 mm port was placed into the abdomen and the abdomen was insufflated, there were no complications with insufflation. ?The scope and camera was brought in and then 3 more ports were placed. An 8?mm port was placed in the right lateral position. Two additional?8 mm Davinci ports were placed, 8 cm to the left and one to the right of the umbilicus. ?The patient was then placed in reverse Trendelenburg position and slightly turned to the left. The [employer] robot was docked. The 4th arm was used to grasp the dome of the gallbladder superiorly. ?The peritoneal attachments were taken down with meticulous dissection laterally and medially from the gallbladder. ?At this point the infundibular gallbladder was retracted laterally and a critical view was obtained. ?With the cystic duct inferiorly cystic artery medially and the liver posteriorly.critical view was taken nicely green was used to identify the cystic duct common bile duct junction. ?Two clips were placed on the patient side and 1 on the specimen side of both the cystic duct and the cystic artery. ?These were then excised. ?The remainder of the gallbladder was taken off of the gallbladder fossa using electrocautery. The gallbladder was then removed through the umbilical port using Endo-Catch bag. ?The gallbladder fossa was visualized again to confirm no bleeding and no leak from the cystic duct. The robot was undocked from the patient. The abdomen was deinsufflated.? The umbilical incision fascia was closed with a aaoxdj-wb-umhzf 0 Vicryl. The skin was closed at all the incisions with 4 0 Monocryl. All incisions and underlying muscle was anesthetized with local anesthetic.? Steri-Strips were then placed over the incisions. The patient was extubated and had no immediate postoperative complications. Patient was taken to the PACU in stable condition. Making Line Worker: OUMOU Cunningham Estimated blood loss (mL): 3 Specimens: gallbladder Complications: No Condition: stable Disposition: PACU
[2023-05-05] MEDS: CEFAZOLIN SODIUM/DEXTROSE,ISO 2 GM/50 ML PIGGYBACK IV (07:27)
[2023-05-05] MEDS: LACTATED RINGER'S SOLUTION 1,000 ML 1000 ML IV (08:42)
[2023-05-05] MEDS: BUPIVACAINE HCL 0.5% PF 50 MG/10 ML VIAL 20 ML INJ (09:09)
[2023-05-05] MEDS: HYDROMORPHONE HCL 0.5 MG/0.5 ML SYRINGE IV ×5 (09:25→10:11)
[2023-05-05] MEDS: MIDAZOLAM HCL 2 MG/2 ML VIAL IV (09:38)
--- NOTE | 2023-05-05 10:04 | PC.NURSE ---
MEDICATED ORDERED; ICE TO ABDOMEN AND RIGHT SHOULDER FOR DISCOMFORT
--- NOTE | 2023-05-05 10:17 | PC.NURSE ---
medicated as ordered for pain
--- NOTE | 2023-05-05 10:24 | PC.NURSE ---
Medicaated with Versed as ordered for restlessness; assisted to BSC for urge to poop; refused bedpan
--- NOTE | 2023-05-05 10:25 | PC.NURSE ---
Also c/o right shoulder pain; ice to abdomen and right shoulder; medicated for pain as ordered
--- NOTE | 2023-05-05 10:29 | PC.NURSE ---
remains on BSC
--- NOTE | 2023-05-05 10:33 | PC.NURSE ---
Medicated with Dilaudid IV as ordered; assisted off BSC AND BACK TO CART
--- NOTE | 2023-05-05 10:41 | PC.NURSE ---
QAssisted to recliner chair with pillow to back and feet elevated
--- NOTE | 2023-05-05 10:42 | PC.NURSE ---
Medicated as ordered for pain
--- NOTE | 2023-05-05 11:07 | PC.NURSE ---
Incisional pain mostly mid upper and continues to have right shoulder discomfort
[2023-05-05] MEDS: OXYCODONE HCL/ACETAMINOPHEN 5MG/325MG 1 TAB PO (11:15)
--- NOTE | 2023-05-05 12:07 | PC.NURSE ---
Continues to have right shoulder discomfort; ice maintained and positions for comfort; remains in chair
== END 2023-05-05 11:35 | disposition home or self-care (01) ==
PROVIDERS: PCP Family Medicine; Visit Provider Surgery
PROC: (CPT 790; principal; 2023-05-05 07:30)
DX: K80.10 Calculus of gallbladder with chronic cholecystitis without obstruction (principal); F17.290 Nicotine dependence, other tobacco product, uncomplicated; Z21 Asymptomatic human immunodeficiency virus [HIV] infection status; Z79.899 Other long term (current) drug therapy
CPT/HCPCS: 47562; 36415; 88304; J0131; J0330; J0665; J0690; J1100; J1170; J1885; J2250; J2405; J2704; J3010